=== PATIENT | male | born 1975 | race Caucasian/White ===

== ENCOUNTER 2020-10-17 07:42 | Inpatient (IN) | payer MEDICAID, OTHER, SELFPAY ==
[~2020-10-17] VITALS: Ht 175.3 cm; Wt 47.6 kg
[2020-10-17] MEDS ORDERED: SODIUM CHLORIDE 0.9% 1,000 ML IV ONE ×3 (09:30→11:15)
[2020-10-17 10:21] LABS: MEAN CORPUSCULAR HEMOGLOBIN 21.9 pg (28.0-32.0); MEAN CORPUSCULAR VOLUME 72.9 fL (80.0-94.0); MEAN PLATELET VOLUME 7.7 fl (7.4-10.4); PLATELET 157 x1000/uL (130-400); RED BLOOD CELL COUNT 1.49 mill/uL (4.7-6.1); RED CELL DISTRIBUTION WIDTH 17.9 % (11.6-14.6)
[2020-10-17 10:25] LABS: CHLORIDE 93 mEq/L (98-107)
[2020-10-17 10:29] LABS: ETHANOL BLOOD < 10 mg/dL
[2020-10-17 10:32] LABS: HEMATOCRIT. 10.9 % (42.0-52.0); HEMOGLOBIN. 3.3 g/dL (14.0-18.0)
[2020-10-17 10:51] LABS: NUCLEATED RED BLOOD CELLS 1 /100 WBC; PLATELET ESTIMATE NORMAL
[2020-10-17 12:07] LABS: CLARITY URINE CLOUDY (CLEAR); COLOR URINE YELLOW (YELLOW); KETONES URINE 2+ (NEGATIVE); LEUKOCYTE ESTERASE URINE NEGATIVE (NEGATIVE); NITRITE URINE NEGATIVE (NEGATIVE); OCCULT BLOOD URINE TRACE (NEGATIVE); PROTEIN URINE TRACE (NEGATIVE); SPECIFIC GRAVITY URINE 1.023 (1.005-1.030); UROBILINOGEN URINE 0.2 E.U./dL (0.2-1.0)
[2020-10-17 12:08] LABS: PARTIAL THROMBOPLASTIN TIME 69.3 sec (23.4-31.0); PROTHROMBIN TIME 20.3 sec (9.6-11.0)
[2020-10-17] MEDS ORDERED: MIDAZOLAM HCL 2 MG/2 ML VIAL IV ONE (12:15)
[2020-10-17] MEDS ORDERED: MIDAZOLAM HCL 100 MG in DEXT 5% WATER 80 ML IV ONE (12:15)
[2020-10-17 12:39] LABS: *AMPHETAMINES SCREEN URINE NEGATIVE (NEGATIVE); *BARBITURATES SCREEN URINE NEGATIVE (NEGATIVE); *BENZODIAZEPINES SCREEN URINE NEGATIVE (NEGATIVE); *COCAINE SCREEN URINE NEGATIVE (NEGATIVE); CANNABINOID URINE SCREEN NEGATIVE (NEGATIVE); PHENCYCLIDINE URINE SCREEN NEGATIVE (NEGATIVE)
[2020-10-17 12:41] LABS: METHADONE URINE SCREEN NEGATIVE (NEGATIVE)
[2020-10-17 12:42] LABS: OPIATES URINE SCREEN NEGATIVE (NEGATIVE)
[2020-10-17] MEDS ORDERED: MIDAZOLAM HCL 100 MG in DEXT 5% WATER 80 ML IV NR (12:45)
[2020-10-17] MEDS ORDERED: NOREPINEPHRINE 8MG/250ML PMX 250 ML IV ONE (14:30)
[2020-10-17] MEDS ORDERED: NOREPINEPHRINE 8 MG in DEXTROSE 5% WATER 250 ML IV ONE (14:30)
[2020-10-17] MEDS ORDERED: ONDANSETRON HCL 4MG/2ML INJ IV PRN (15:00)
[2020-10-17] MEDS ORDERED: SUCCINYLCHOLINE CHLORIDE 200MG/10ML IV ONE (15:00)
[2020-10-17] MEDS ORDERED: ATROPINE SULFATE 1MG/10ML SYR ONE (15:00)
[2020-10-17] MEDS ORDERED: SODIUM BICARBONATE 8.4% 1 MEQ/ML 50ML SYR IV SCH (15:00)
[2020-10-17] MEDS ORDERED: VECURONIUM BROMIDE 10 MG/VIAL IV ONE (15:00)
[2020-10-17] MEDS ORDERED: EPINEPHRINE 0.1MG/ML (1:10,000) 10ML SYR ONE (15:00)
[2020-10-17] MEDS: PANTOPRAZOLE SODIUM 40 MG/VIAL IV SCH (15:08)
[2020-10-17] MEDS ORDERED: POTASSIUM CHLORIDE INJ 40 MEQ in DEXT 5% WATER 250 ML IV SCH (16:00)
[2020-10-17] MEDS: CEFEPIME 1,000 MG in DEXTROSE 5% WATER 50 ML IV SCH (16:10)
[2020-10-17 16:34] LABS: PHOSPHORUS 4.6 mg/dL (2.5-4.9)
[2020-10-17] MEDS: SODIUM BICARBONATE 150 MEQ in SODIUM CHLORIDE 0.45% 1,000 ML IV SCH (16:34)
[2020-10-17] MEDS: VANCOMYCIN 1 G PREMIX 200 ML IV SCH (16:49)
[2020-10-17 16:55] LABS: HEPATITIS B SURFACE ANTIGEN NEGATIVE
[2020-10-17 17:25] LABS: HEPATITIS A AB IGM NEGATIVE (NEGATIVE)
[2020-10-17 19:48] LABS: HEMATOCRIT. 26.3 % (42.0-52.0); HEMOGLOBIN. 8.7 g/dL (14.0-18.0); MEAN CORPUSCULAR HEMOGLOBIN 24.3 pg (28.0-32.0); MEAN CORPUSCULAR VOLUME 73.9 fL (80.0-94.0); MEAN PLATELET VOLUME 7.4 fl (7.4-10.4); PLATELET 218 x1000/uL (130-400); RED BLOOD CELL COUNT 3.57 mill/uL (4.7-6.1); RED CELL DISTRIBUTION WIDTH 21.5 % (11.6-14.6)
[2020-10-17 19:59] LABS: INR 1.6; PROTHROMBIN TIME 16.7 sec (9.6-11.0)
[2020-10-17 20:10] LABS: PARTIAL THROMBOPLASTIN TIME 40.7 sec (23.4-31.0)
[2020-10-17 21:32] LABS: PLATELET ESTIMATE NORMAL
[2020-10-17] MEDS ORDERED: NOREPINEPHRINE 8 MG in DEXTROSE 5% WATER 250 ML IV PRN (23:15)
[2020-10-18] VITALS (64 sets, daily range): BP systolic 80–118; BP diastolic 42–74
[2020-10-18] MEDS: VANCOMYCIN 1 G PREMIX 200 ML IV SCH ×3 (01:20→21:38)
[2020-10-18 05:05] LABS: HEMATOCRIT. 31.3 % (42.0-52.0); HEMOGLOBIN. 10.2 g/dL (14.0-18.0); MEAN CORPUSCULAR VOLUME 73.9 fL (80.0-94.0); MEAN PLATELET VOLUME 7.6 fl (7.4-10.4); PLATELET 214 x1000/uL (130-400); RED BLOOD CELL COUNT 4.24 mill/uL (4.7-6.1)
[2020-10-18 05:14] LABS: CHLORIDE 97 mEq/L (98-107)
[2020-10-18 06:21] LABS: PLATELET ESTIMATE NORMAL
[2020-10-18] MEDS: SODIUM BICARBONATE 150 MEQ in SODIUM CHLORIDE 0.45% 1,000 ML IV SCH ×2 (06:30→09:48)
[2020-10-18] MEDS: CEFEPIME 1,000 MG in DEXTROSE 5% WATER 50 ML IV SCH ×2 (06:30→19:44)
[2020-10-18] MEDS ORDERED: NOREPINEPHRINE 32 MG in DEXT 5% WATER 218 ML IV PRN (08:15)
[2020-10-18] MEDS ORDERED: POTASSIUM CHLORIDE 20MEQ TABLET SR PO NR (09:42)
[2020-10-18] MEDS: PANTOPRAZOLE SODIUM 40 MG/VIAL IV SCH ×2 (09:54→17:21)
[2020-10-18] MEDS ORDERED: POTASSIUM CHLORIDE 20MEQ/PACKET PO NR (10:00)
[2020-10-18] MEDS: NOREPINEPHRINE 32 MG in DEXT 5% WATER 218 ML IV PRN ×2 (10:58→23:34)
[2020-10-18] MEDS: SODIUM CHLORIDE 0.9% 1,000 ML IV SCH (12:24)
[2020-10-18 13:21] LABS: BG BASE EXCESS -1.5 mmol/L (-2.0-2.0); BG CARBOXYHEMOGLOBIN 0.3 % (0.5-1.5); BG DEOXYHEMOGLOBIN 9.2 % (0.0-5.0); BG HCO3 ACT 20.7 mmol/L (22.0-26.0); BG METHEMOGLOBIN 0.3 % (0.0-1.5); BG OXYGEN SATURATION 90.7 % (92.0-98.5); BG OXYHEMOGLOBIN 90.2 % (94.0-97.0); BG PCO2 26.8 mmHg (35.0-45.0); BG PH 7.506 (7.350-7.450); BG PO2 56.5 mmHg (75.0-100.0); BG SAMPLE SITE RIGHT RADIAL; BG TOTAL HEMOGLOBIN 10.3 g/dL (12.0-18.0); BG VENT MODE VENT - AC
[2020-10-18] MEDS: MIDAZOLAM HCL 100 MG in DEXT 5% WATER 80 ML IV PRN (14:14)
[2020-10-18 16:55] LABS: CHLORIDE 98 mEq/L (98-107)
[2020-10-19] VITALS (93 sets, daily range): BP systolic 77–149; BP diastolic 46–98
[2020-10-19] MEDS: SODIUM CHLORIDE 0.9% 1,000 ML IV SCH (00:57)
[2020-10-19] MEDS: CEFEPIME 1,000 MG in DEXTROSE 5% WATER 50 ML IV SCH ×2 (05:05→22:18)
[2020-10-19 06:01] LABS: HEMOGLOBIN. 9.9 g/dL (14.0-18.0); MEAN CORPUSCULAR HEMOGLOBIN 24.1 pg (28.0-32.0); PLATELET 142 x1000/uL (130-400); RED CELL DISTRIBUTION WIDTH 21.9 % (11.6-14.6)
[2020-10-19 06:04] LABS: CHLORIDE 98 mEq/L (98-107)
[2020-10-19 06:07] LABS: INR 1.6; PROTHROMBIN TIME 16.6 sec (9.6-11.0)
[2020-10-19] MEDS: VANCOMYCIN 1 G PREMIX 200 ML IV SCH (06:08)
[2020-10-19 06:12] LABS: TOTAL IRON BINDING CAPACITY 275 ug/dL (250-450)
[2020-10-19 06:25] LABS: FOLIC ACID (FOLATE) SERUM 6.4 ng/mL (>5.38)
[2020-10-19 09:09] LABS: BG CARBOXYHEMOGLOBIN 0.3 % (0.5-1.5); BG DEOXYHEMOGLOBIN 0.5 % (0.0-5.0); BG HCO3 ACT 20.9 mmol/L (22.0-26.0); BG METHEMOGLOBIN 0.3 % (0.0-1.5); BG OXYGEN SATURATION 99.5 % (92.0-98.5); BG OXYHEMOGLOBIN 98.9 % (94.0-97.0); BG PCO2 29.3 mmHg (35.0-45.0); BG PH 7.471 (7.350-7.450); BG PO2 367.9 mmHg (75.0-100.0); BG SAMPLE SITE RIGHT RADIAL; BG TOTAL HEMOGLOBIN 10.3 g/dL (12.0-18.0); BG VENT MODE VENT - AC
[2020-10-19] MEDS ORDERED: DEXTROSE 50% WATER 50ML SYRINGE IV PRN (09:15)
[2020-10-19] MEDS ORDERED: DEXTROSE 5% WATER 1,000 ML IV SCH (09:30)
[2020-10-19] MEDS: MIDAZOLAM HCL 100 MG in DEXT 5% WATER 80 ML IV PRN (09:30)
[2020-10-19] MEDS: PANTOPRAZOLE SODIUM 40 MG/VIAL IV SCH ×2 (09:30→16:49)
[2020-10-19 10:54] LABS: PLATELET ESTIMATE NORMAL
[2020-10-19] MEDS ORDERED: PIPERONYL/PYRETHRINS (RID)120 ML SHAMPOO TOP SCH (13:00)
[2020-10-19] MEDS: LACTULOSE 20G/30ML UDC PO SCH ×2 (13:34→22:19)
[2020-10-19] MEDS: IRON SUCROSE COMPLEX 100 MG/5 ML ML IV SCH (13:35)
[2020-10-19] MEDS: MIDODRINE HCL 5MG TABLET PO SCH ×2 (13:36→17:00)
[2020-10-19] MEDS: DEXT 5%/0.9% NACL 1,000 ML IV SCH ×2 (13:38→19:45)
[2020-10-19] MEDS: NOREPINEPHRINE 32 MG in DEXT 5% WATER 218 ML IV PRN (18:01)
[2020-10-20] VITALS (97 sets, daily range): BP systolic 82–143; BP diastolic 51–86
[2020-10-20] MEDS: MIDAZOLAM HCL 100 MG in DEXT 5% WATER 80 ML IV PRN ×2 (03:51→23:11)
[2020-10-20 05:40] LABS: HEMATOCRIT. 30.8 % (42.0-52.0); HEMOGLOBIN. 9.8 g/dL (14.0-18.0); MEAN CORPUSCULAR HEMOGLOBIN 23.9 pg (28.0-32.0); MEAN CORPUSCULAR VOLUME 74.9 fL (80.0-94.0); MEAN PLATELET VOLUME 8.9 fl (7.4-10.4); PLATELET 79 x1000/uL (130-400); RED BLOOD CELL COUNT 4.11 mill/uL (4.7-6.1); RED CELL DISTRIBUTION WIDTH 21.9 % (11.6-14.6)
[2020-10-20 05:59] LABS: CHLORIDE 102 mEq/L (98-107)
[2020-10-20] MEDS: LACTULOSE 20G/30ML UDC PO SCH ×3 (06:55→22:20)
[2020-10-20] MEDS: MIDODRINE HCL 5MG TABLET PO SCH ×3 (08:15→17:00)
[2020-10-20] MEDS: IRON SUCROSE COMPLEX 100 MG/5 ML ML IV SCH (08:15)
[2020-10-20] MEDS: PANTOPRAZOLE SODIUM 40 MG/VIAL IV SCH ×2 (08:15→17:00)
[2020-10-20] MEDS: CEFEPIME 1,000 MG in DEXTROSE 5% WATER 50 ML IV SCH ×2 (08:16→20:00)
[2020-10-20] MEDS: NOREPINEPHRINE 32 MG in DEXT 5% WATER 218 ML IV PRN ×2 (08:17→22:21)
[2020-10-20 08:40] LABS: PLATELET ESTIMATE DECREASED
[2020-10-20 09:47] LABS: BG BASE EXCESS -3.4 mmol/L (-2.0-2.0); BG CARBOXYHEMOGLOBIN 0.3 % (0.5-1.5); BG DEOXYHEMOGLOBIN 0.8 % (0.0-5.0); BG FRACTION INSPIRED OXYGEN 70; BG HCO3 ACT 21.5 mmol/L (22.0-26.0); BG METHEMOGLOBIN 0.2 % (0.0-1.5); BG OXYGEN SATURATION 99.2 % (92.0-98.5); BG OXYHEMOGLOBIN 98.7 % (94.0-97.0); BG PCO2 37.7 mmHg (35.0-45.0); BG PH 7.373 (7.350-7.450); BG PO2 207.7 mmHg (75.0-100.0); BG SAMPLE SITE RIGHT RADIAL; BG TOTAL HEMOGLOBIN 10.1 g/dL (12.0-18.0); BG VENT MODE VENT - AC
[2020-10-20] MEDS ORDERED: POTASSIUM CHLORIDE 20MEQ TABLET SR PO NR (11:00)
[2020-10-20] MEDS: SODIUM CHLORIDE 0.9% 1,000 ML IV SCH ×2 (12:04→21:30)
[2020-10-20] MEDS: VANCOMYCIN 1 G PREMIX 200 ML IV SCH (12:04)
[2020-10-20] MEDS ORDERED: POTASSIUM CHLORIDE INJ 40 MEQ in DEXT 5% WATER 250 ML IV NR (13:00)
[2020-10-20] MEDS: IPRATROPIUM/ALBUTEROL 0.5-3(2.5)MG/3ML NEB HHN SCH (20:50)
[2020-10-21] VITALS (95 sets, daily range): BP systolic 69–170; BP diastolic 34–95
[2020-10-21] MEDS: IPRATROPIUM/ALBUTEROL 0.5-3(2.5)MG/3ML NEB HHN SCH ×4 (01:38→20:44)
[2020-10-21] MEDS: SODIUM CHLORIDE 0.9% 1,000 ML IV SCH ×2 (03:40→17:27)
[2020-10-21 05:56] LABS: HEMATOCRIT. 30.4 % (42.0-52.0); HEMOGLOBIN. 9.7 g/dL (14.0-18.0); MEAN CORPUSCULAR HEMOGLOBIN 23.8 pg (28.0-32.0); MEAN CORPUSCULAR VOLUME 74.9 fL (80.0-94.0); MEAN PLATELET VOLUME 9.2 fl (7.4-10.4); PLATELET 54 x1000/uL (130-400); RED BLOOD CELL COUNT 4.07 mill/uL (4.7-6.1); RED CELL DISTRIBUTION WIDTH 21.5 % (11.6-14.6)
[2020-10-21 06:11] LABS: CHLORIDE 107 mEq/L (98-107)
[2020-10-21] MEDS: VANCOMYCIN 1 G PREMIX 200 ML IV SCH (06:18)
[2020-10-21] MEDS: LACTULOSE 20G/30ML UDC PO SCH ×2 (06:18→14:36)
[2020-10-21 07:57] LABS: PLATELET ESTIMATE DECREASED
[2020-10-21] MEDS ORDERED: POTASSIUM CHLORIDE INJ 40 MEQ in DEXT 5% WATER 250 ML IV NR (08:30)
[2020-10-21] MEDS: IRON SUCROSE COMPLEX 100 MG/5 ML ML IV SCH (08:34)
[2020-10-21] MEDS: PANTOPRAZOLE SODIUM 40 MG/VIAL IV SCH ×2 (08:34→17:26)
[2020-10-21 08:35] LABS: BG CARBOXYHEMOGLOBIN 0.4 % (0.5-1.5); BG DEOXYHEMOGLOBIN 1.9 % (0.0-5.0); BG FRACTION INSPIRED OXYGEN 50; BG HCO3 ACT 22.8 mmol/L (22.0-26.0); BG METHEMOGLOBIN 0.2 % (0.0-1.5); BG OXYGEN SATURATION 98.1 % (92.0-98.5); BG OXYHEMOGLOBIN 97.5 % (94.0-97.0); BG PCO2 39.3 mmHg (35.0-45.0); BG PH 7.382 (7.350-7.450); BG PO2 111.4 mmHg (75.0-100.0); BG SAMPLE SITE RIGHT RADIAL; BG VENT MODE VENT - AC
[2020-10-21] MEDS: MIDODRINE HCL 5MG TABLET PO SCH ×3 (08:35→17:26)
[2020-10-21] MEDS: CEFEPIME 1,000 MG in DEXTROSE 5% WATER 50 ML IV SCH ×2 (10:44→20:04)
[2020-10-21] MEDS ORDERED: VECURONIUM BROMIDE 10 MG/VIAL IV ONE (15:00)
[2020-10-21] MEDS ORDERED: ETOMIDATE 2MG/ML 10ML VIAL IV ONE (15:00)
[2020-10-21] MEDS ORDERED: SODIUM CHLORIDE 0.9% 10ML VIAL ONE (15:00)
[2020-10-21] MEDS: FENTANYL CITRATE/PF 1,000 MCG in SODIUM CHLORIDE 0.9% 80 ML IV PRN ×2 (15:28→18:40)
[2020-10-21] MEDS: NOREPINEPHRINE 32 MG in DEXT 5% WATER 218 ML IV PRN (20:39)
[2020-10-22] VITALS (92 sets, daily range): BP systolic 73–145; BP diastolic 46–90
[2020-10-22] MEDS: IPRATROPIUM/ALBUTEROL 0.5-3(2.5)MG/3ML NEB HHN SCH ×4 (01:18→19:53)
[2020-10-22] MEDS: SODIUM CHLORIDE 0.9% 1,000 ML IV SCH ×2 (05:01→12:30)
[2020-10-22] MEDS ORDERED: NOREPINEPHRINE 32 MG in DEXTROSE 5% WATER 250 ML IV PRN (05:15)
[2020-10-22 06:22] LABS: CHLORIDE 110 mEq/L (98-107)
[2020-10-22 06:31] LABS: CREATINE KINASE 362 IU/L (39-308)
[2020-10-22] MEDS: PANTOPRAZOLE SODIUM 40 MG/VIAL IV SCH (09:27)
[2020-10-22] MEDS: LACTULOSE 20G/30ML UDC PO SCH (09:27)
[2020-10-22] MEDS: IRON SUCROSE COMPLEX 100 MG/5 ML ML IV SCH (09:28)
[2020-10-22] MEDS: MIDODRINE HCL 5MG TABLET PO SCH ×2 (09:28→12:30)
[2020-10-22] MEDS: FENTANYL CITRATE/PF 1,000 MCG in SODIUM CHLORIDE 0.9% 80 ML IV PRN (09:41)
[2020-10-22 09:51] LABS: HEMATOCRIT. 32.8 % (42.0-52.0); MEAN CORPUSCULAR HEMOGLOBIN 23.2 pg (28.0-32.0); MEAN CORPUSCULAR VOLUME 75.7 fL (80.0-94.0); RED BLOOD CELL COUNT 4.33 mill/uL (4.7-6.1)
[2020-10-22 10:07] LABS: PLATELET 36 x1000/uL (130-400)
[2020-10-22 10:48] LABS: NUCLEATED RED BLOOD CELLS 1 /100 WBC
[2020-10-22 10:49] LABS: PLATELET ESTIMATE MARKEDLY DECREASED
[2020-10-22] MEDS ORDERED: POTASSIUM CHLORIDE 20MEQ TABLET SR PO NR (11:00)
[2020-10-22] MEDS: CEFEPIME 1,000 MG in DEXTROSE 5% WATER 50 ML IV SCH (11:04)
[2020-10-22 11:17] LABS: BG BASE EXCESS 0.1 mmol/L (-2.0-2.0); BG CARBOXYHEMOGLOBIN 0.9 % (0.5-1.5); BG DEOXYHEMOGLOBIN 2.5 % (0.0-5.0); BG FRACTION INSPIRED OXYGEN 40; BG HCO3 ACT 25.2 mmol/L (22.0-26.0); BG METHEMOGLOBIN 0.2 % (0.0-1.5); BG OXYGEN SATURATION 97.5 % (92.0-98.5); BG OXYHEMOGLOBIN 96.4 % (94.0-97.0); BG PH 7.386 (7.350-7.450); BG PO2 93.8 mmHg (75.0-100.0); BG SAMPLE SITE RIGHT RADIAL; BG TOTAL HEMOGLOBIN 10.9 g/dL (12.0-18.0); BG TOTAL RESPIRATORY RATE 19 b/min; BG VENT MODE VENT - AC
[2020-10-22] MEDS ORDERED: POTASSIUM CHLORIDE INJ 40 MEQ in DEXT 5% WATER 250 ML IV NR (12:00)
[2020-10-22] MEDS: CEFTRIAXONE 1,000 MG in DEXTROSE 5% WATER 50 ML IV SCH (20:49)
[2020-10-23] VITALS (102 sets, daily range): BP systolic 85–136; BP diastolic 38–76
[2020-10-23] MEDS: IPRATROPIUM/ALBUTEROL 0.5-3(2.5)MG/3ML NEB HHN SCH ×5 (01:55→20:20)
[2020-10-23 05:42] LABS: HEMOGLOBIN. 9.2 g/dL (14.0-18.0); MEAN CORPUSCULAR HEMOGLOBIN 23.6 pg (28.0-32.0); MEAN CORPUSCULAR VOLUME 74.5 fL (80.0-94.0); MEAN PLATELET VOLUME 8.6 fl (7.4-10.4); RED BLOOD CELL COUNT 3.89 mill/uL (4.7-6.1)
[2020-10-23 05:50] LABS: PLATELET 36 x1000/uL (130-400)
[2020-10-23 05:56] LABS: CHLORIDE 106 mEq/L (98-107)
[2020-10-23] MEDS ORDERED: POTASSIUM CHLORIDE INJ 40 MEQ in DEXT 5% WATER 250 ML IV SCH (07:00)
[2020-10-23] MEDS: FENTANYL CITRATE/PF 1,000 MCG in SODIUM CHLORIDE 0.9% 80 ML IV PRN ×2 (07:25→18:41)
[2020-10-23 07:32] LABS: BG BASE EXCESS 5.5 mmol/L (-2.0-2.0); BG CARBOXYHEMOGLOBIN 0.4 % (0.5-1.5); BG DEOXYHEMOGLOBIN 1.9 % (0.0-5.0); BG FRACTION INSPIRED OXYGEN 40; BG METHEMOGLOBIN 0.2 % (0.0-1.5); BG OXYGEN SATURATION 98.1 % (92.0-98.5); BG OXYHEMOGLOBIN 97.5 % (94.0-97.0); BG PCO2 37.9 mmHg (35.0-45.0); BG PH 7.501 (7.350-7.450); BG PO2 103.8 mmHg (75.0-100.0); BG SAMPLE SITE RIGHT RADIAL; BG TOTAL HEMOGLOBIN 9.7 g/dL (12.0-18.0)
[2020-10-23] MEDS: MIDAZOLAM HCL 100 MG in DEXT 5% WATER 80 ML IV PRN (08:31)
[2020-10-23] MEDS: PANTOPRAZOLE SODIUM 40 MG/VIAL IV SCH ×2 (08:49→17:24)
[2020-10-23] MEDS: LACTULOSE 20G/30ML UDC PO SCH (08:49)
[2020-10-23] MEDS: MIDODRINE HCL 5MG TABLET PO SCH ×3 (08:50→17:24)
[2020-10-23] MEDS ORDERED: MAGNESIUM 4 G PREMIX 100 ML IV NR (09:00)
[2020-10-23] MEDS ORDERED: CEFTRIAXONE 1 G PREMIX 50 ML IV SCH (09:00)
[2020-10-23] MEDS: IRON SUCROSE COMPLEX 100 MG/5 ML ML IV SCH (09:25)
[2020-10-23 09:45] LABS: PLATELET ESTIMATE MARKEDLY DECREASED
[2020-10-23] MEDS ORDERED: PERMETHRIN 5% CREAM 60GM TOP ONE (12:00)
[2020-10-23 12:56] LABS: BG BASE EXCESS 3.3 mmol/L (-2.0-2.0); BG CARBOXYHEMOGLOBIN 0.3 % (0.5-1.5); BG DEOXYHEMOGLOBIN 7.9 % (0.0-5.0); BG FRACTION INSPIRED OXYGEN 40; BG HCO3 ACT 28.5 mmol/L (22.0-26.0); BG METHEMOGLOBIN 0.2 % (0.0-1.5); BG OXYGEN SATURATION 92.1 % (92.0-98.5); BG OXYHEMOGLOBIN 91.6 % (94.0-97.0); BG PCO2 46.9 mmHg (35.0-45.0); BG PH 7.402 (7.350-7.450); BG SAMPLE SITE RIGHT RADIAL; BG TOTAL RESPIRATORY RATE 23 b/min; BG VENT MODE VENT - AC
[2020-10-23] MEDS: PHENYLEPHRINE 100 MG in DEXT 5% WATER 240 ML IV PRN (13:02)
[2020-10-23 19:25] LABS: CLARITY URINE TURBID (CLEAR); COLOR URINE ORANGE (YELLOW); KETONES URINE NEGATIVE (NEGATIVE); LEUKOCYTE ESTERASE URINE 1+ (NEGATIVE); NITRITE URINE POSITIVE (NEGATIVE); OCCULT BLOOD URINE 3+ (NEGATIVE); PROTEIN URINE 1+ (NEGATIVE); SPECIFIC GRAVITY URINE 1.026 (1.005-1.030); UROBILINOGEN URINE 0.2 E.U./dL (0.2-1.0)
[2020-10-23] MEDS: CEFTRIAXONE 1,000 MG in DEXTROSE 5% WATER 50 ML IV SCH (20:44)
[2020-10-24] VITALS (100 sets, daily range): BP systolic 88–137; BP diastolic 39–74
[2020-10-24] MEDS: IPRATROPIUM/ALBUTEROL 0.5-3(2.5)MG/3ML NEB HHN SCH ×4 (02:34→20:36)
[2020-10-24 05:35] LABS: BASOPHILS % 0.1 % (0.0-2.0); EOSINOPHILS % 7.1 % (0.0-5.0); HEMATOCRIT. 26.8 % (42.0-52.0); HEMOGLOBIN. 8.5 g/dL (14.0-18.0); LYMPHOCYTES % 7.6 % (20.0-50.0); MEAN CORPUSCULAR HEMOGLOBIN 23.7 pg (28.0-32.0); MEAN CORPUSCULAR VOLUME 74.9 fL (80.0-94.0); MEAN PLATELET VOLUME 9.5 fl (7.4-10.4); NEUTROPHILS % 78.2 % (40.0-76.0); RED BLOOD CELL COUNT 3.57 mill/uL (4.7-6.1); RED CELL DISTRIBUTION WIDTH 22.8 % (11.6-14.6)
[2020-10-24 05:41] LABS: CHLORIDE 107 mEq/L (98-107)
[2020-10-24] MEDS: FENTANYL CITRATE/PF 1,000 MCG in SODIUM CHLORIDE 0.9% 80 ML IV PRN ×2 (06:07→18:47)
[2020-10-24 07:13] LABS: PLATELET 34 x1000/uL (130-400)
[2020-10-24] MEDS: MIDAZOLAM HCL 100 MG in DEXT 5% WATER 80 ML IV PRN (08:21)
[2020-10-24] MEDS: PANTOPRAZOLE SODIUM 40 MG/VIAL IV SCH ×2 (08:34→17:33)
[2020-10-24] MEDS: LACTULOSE 20G/30ML UDC PO SCH (08:34)
[2020-10-24] MEDS: MIDODRINE HCL 5MG TABLET PO SCH ×3 (08:35→17:33)
[2020-10-24] MEDS: PHENYLEPHRINE 100 MG in DEXT 5% WATER 240 ML IV PRN (15:49)
[2020-10-24] MEDS: CEFTRIAXONE 1,000 MG in DEXTROSE 5% WATER 50 ML IV SCH (20:30)
[2020-10-25] VITALS (93 sets, daily range): BP systolic 59–142; BP diastolic 22–75
[2020-10-25] MEDS: ACETAMINOPHEN 325MG TABLET PO PRN (01:09)
[2020-10-25] MEDS: IPRATROPIUM/ALBUTEROL 0.5-3(2.5)MG/3ML NEB HHN SCH ×3 (01:45→20:44)
[2020-10-25] MEDS: FENTANYL CITRATE/PF 1,000 MCG in SODIUM CHLORIDE 0.9% 80 ML IV PRN ×2 (04:16→17:14)
[2020-10-25] MEDS: MIDAZOLAM HCL 100 MG in DEXT 5% WATER 80 ML IV PRN (04:18)
[2020-10-25 07:03] LABS: INR 1.2; PROTHROMBIN TIME 12.4 sec (9.6-11.0)
[2020-10-25 07:06] LABS: CHLORIDE 105 mEq/L (98-107)
[2020-10-25 08:41] LABS: BASOPHILS % 0.2 % (0.0-2.0); EOSINOPHILS % 5.5 % (0.0-5.0); HEMATOCRIT. 27.4 % (42.0-52.0); HEMOGLOBIN. 8.8 g/dL (14.0-18.0); MEAN CORPUSCULAR HEMOGLOBIN 24.1 pg (28.0-32.0); MEAN CORPUSCULAR VOLUME 75.3 fL (80.0-94.0); MEAN PLATELET VOLUME 9.3 fl (7.4-10.4); MONOCYTES % 9.4 % (2.0-8.0); NEUTROPHILS % 72.9 % (40.0-76.0); PLATELET 55 x1000/uL (130-400); RED BLOOD CELL COUNT 3.64 mill/uL (4.7-6.1); RED CELL DISTRIBUTION WIDTH 23.1 % (11.6-14.6)
[2020-10-25] MEDS: MIDODRINE HCL 5MG TABLET PO SCH ×3 (09:57→17:13)
[2020-10-25] MEDS: PANTOPRAZOLE SODIUM 40 MG/VIAL IV SCH ×2 (09:57→17:12)
[2020-10-25] MEDS ORDERED: MAGNESIUM 4 G PREMIX 100 ML IV NR (12:30)
[2020-10-25] MEDS: CEFTRIAXONE 1,000 MG in DEXTROSE 5% WATER 50 ML IV SCH (21:26)
[2020-10-25] MEDS: PHENYLEPHRINE 100 MG in DEXT 5% WATER 240 ML IV PRN (23:07)
[2020-10-26] VITALS (96 sets, daily range): BP systolic 84–151; BP diastolic 32–83
[2020-10-26] MEDS: MIDAZOLAM HCL 100 MG in DEXT 5% WATER 80 ML IV PRN (02:08)
[2020-10-26] MEDS: IPRATROPIUM/ALBUTEROL 0.5-3(2.5)MG/3ML NEB HHN SCH ×4 (02:24→20:23)
[2020-10-26] MEDS: FENTANYL CITRATE/PF 1,000 MCG in SODIUM CHLORIDE 0.9% 80 ML IV PRN ×2 (03:41→14:55)
[2020-10-26 05:42] LABS: BASOPHILS % 0.2 % (0.0-2.0); EOSINOPHILS % 2.3 % (0.0-5.0); HEMATOCRIT. 27.3 % (42.0-52.0); HEMOGLOBIN. 8.9 g/dL (14.0-18.0); LYMPHOCYTES % 13.1 % (20.0-50.0); MEAN CORPUSCULAR HEMOGLOBIN 24.4 pg (28.0-32.0); MEAN CORPUSCULAR VOLUME 75.1 fL (80.0-94.0); MONOCYTES % 11.5 % (2.0-8.0); NEUTROPHILS % 72.9 % (40.0-76.0); RED BLOOD CELL COUNT 3.63 mill/uL (4.7-6.1); RED CELL DISTRIBUTION WIDTH 24.4 % (11.6-14.6)
[2020-10-26 05:46] LABS: CHLORIDE 102 mEq/L (98-107)
[2020-10-26 06:01] LABS: INR 1.1; PROTHROMBIN TIME 11.8 sec (9.6-11.0)
[2020-10-26 09:13] LABS: PLATELET 69 x1000/uL (130-400)
[2020-10-26] MEDS: MIDODRINE HCL 5MG TABLET PO SCH ×3 (09:13→17:08)
[2020-10-26] MEDS: PANTOPRAZOLE SODIUM 40 MG/VIAL IV SCH ×2 (09:13→17:07)
[2020-10-26] MEDS: ACETAMINOPHEN 325MG TABLET PO PRN (09:16)
[2020-10-26] MEDS: METOCLOPRAMIDE HCL 10MG/2ML VIAL IV SCH ×3 (12:49→23:22)
[2020-10-26] MEDS ORDERED: MAGNESIUM 2 G PREMIX 50 ML IV NR (13:00)
[2020-10-26] MEDS: LACTULOSE 20G/30ML UDC PO PRN (17:07)
[2020-10-26] MEDS: CEFTRIAXONE 1,000 MG in DEXTROSE 5% WATER 50 ML IV SCH (20:56)
[2020-10-26] MEDS: PHENYLEPHRINE 100 MG in DEXT 5% WATER 240 ML IV PRN (21:02)
[2020-10-26] MEDS ORDERED: MAGNESIUM 2 G PREMIX 50 ML IV SCH (22:30)
[2020-10-26] MEDS: FENTANYL CITRATE/PF 2,500 MCG in SODIUM CHLORIDE 0.9% 200 ML IV PRN (23:20)
[2020-10-27] VITALS (79 sets, daily range): BP systolic 88–140; BP diastolic 47–88
[2020-10-27] MEDS: IPRATROPIUM/ALBUTEROL 0.5-3(2.5)MG/3ML NEB HHN SCH ×4 (00:06→20:57)
[2020-10-27] MEDS: METOCLOPRAMIDE HCL 10MG/2ML VIAL IV SCH ×4 (06:10→23:55)
[2020-10-27] MEDS: ACETAMINOPHEN 325MG TABLET PO PRN (06:18)
[2020-10-27 06:34] LABS: BASOPHILS % 0.4 % (0.0-2.0); EOSINOPHILS % 4.3 % (0.0-5.0); HEMATOCRIT. 31.1 % (42.0-52.0); HEMOGLOBIN. 9.8 g/dL (14.0-18.0); LYMPHOCYTES % 16.9 % (20.0-50.0); MEAN CORPUSCULAR HEMOGLOBIN 23.9 pg (28.0-32.0); MEAN CORPUSCULAR VOLUME 75.7 fL (80.0-94.0); MEAN PLATELET VOLUME 9.4 fl (7.4-10.4); MONOCYTES % 8.7 % (2.0-8.0); NEUTROPHILS % 69.7 % (40.0-76.0); PLATELET 112 x1000/uL (130-400); RED BLOOD CELL COUNT 4.11 mill/uL (4.7-6.1); RED CELL DISTRIBUTION WIDTH 24.7 % (11.6-14.6)
[2020-10-27 06:43] LABS: CHLORIDE 99 mEq/L (98-107); INR 1.1; PROTHROMBIN TIME 11.2 sec (9.6-11.0)
[2020-10-27] MEDS: MIDODRINE HCL 5MG TABLET PO SCH ×3 (08:55→17:33)
[2020-10-27] MEDS: PANTOPRAZOLE SODIUM 40 MG/VIAL IV SCH ×2 (08:55→17:34)
[2020-10-27] MEDS ORDERED: SODIUM POLYSTYRENE SULFONATE 15 G/60 ML BOT PO SCH (10:00)
[2020-10-27] MEDS: MIDAZOLAM HCL 100 MG in DEXT 5% WATER 80 ML IV PRN (18:03)
[2020-10-27] MEDS: FENTANYL CITRATE/PF 2,500 MCG in SODIUM CHLORIDE 0.9% 200 ML IV PRN (19:25)
[2020-10-27] MEDS: CEFTRIAXONE 1,000 MG in DEXTROSE 5% WATER 50 ML IV SCH (20:24)
[2020-10-28] VITALS (70 sets, daily range): BP systolic 87–140; BP diastolic 47–96
[2020-10-28] MEDS: IPRATROPIUM/ALBUTEROL 0.5-3(2.5)MG/3ML NEB HHN SCH ×4 (01:59→20:21)
[2020-10-28] MEDS: METOCLOPRAMIDE HCL 10MG/2ML VIAL IV SCH ×4 (05:38→23:48)
[2020-10-28 07:09] LABS: CHLORIDE 98 mEq/L (98-107)
[2020-10-28 07:20] LABS: INR 1.1; PROTHROMBIN TIME 11.4 sec (9.6-11.0)
[2020-10-28] MEDS: FENTANYL CITRATE/PF 2,500 MCG in SODIUM CHLORIDE 0.9% 200 ML IV PRN ×2 (07:54→22:35)
[2020-10-28 08:32] LABS: BASOPHILS % 0.3 % (0.0-2.0); EOSINOPHILS % 3.2 % (0.0-5.0); HEMOGLOBIN. 8.4 g/dL (14.0-18.0); LYMPHOCYTES % 11.8 % (20.0-50.0); MEAN CORPUSCULAR HEMOGLOBIN 24.5 pg (28.0-32.0); MEAN PLATELET VOLUME 9.7 fl (7.4-10.4); MONOCYTES % 11.2 % (2.0-8.0); NEUTROPHILS % 73.5 % (40.0-76.0); RED BLOOD CELL COUNT 3.42 mill/uL (4.7-6.1); RED CELL DISTRIBUTION WIDTH 24.8 % (11.6-14.6)
[2020-10-28 08:40] LABS: PLATELET 187 x1000/uL (130-400)
[2020-10-28] MEDS: PANTOPRAZOLE SODIUM 40 MG/VIAL IV SCH ×2 (09:09→16:34)
[2020-10-28] MEDS: MIDODRINE HCL 5MG TABLET PO SCH ×3 (09:09→16:34)
[2020-10-28 10:02] LABS: BG BASE EXCESS 4.2 mmol/L (-2.0-2.0); BG CARBOXYHEMOGLOBIN 1.2 % (0.5-1.5); BG HCO3 ACT 27.8 mmol/L (22.0-26.0); BG METHEMOGLOBIN 0.3 % (0.0-1.5); BG OXYGEN SATURATION 94.9 % (92.0-98.5); BG OXYHEMOGLOBIN 93.5 % (94.0-97.0); BG PCO2 37.6 mmHg (35.0-45.0); BG PH 7.487 (7.350-7.450); BG PO2 70.9 mmHg (75.0-100.0); BG SAMPLE SITE RIGHT RADIAL; BG TOTAL HEMOGLOBIN 8.4 g/dL (12.0-18.0); BG VENT MODE VENT - AC
[2020-10-28] MEDS: ACETAMINOPHEN 325MG TABLET PO PRN (16:34)
[2020-10-29] VITALS (74 sets, daily range): BP systolic 82–148; BP diastolic 43–81
[2020-10-29] MEDS: IPRATROPIUM/ALBUTEROL 0.5-3(2.5)MG/3ML NEB HHN SCH ×4 (01:59→20:39)
[2020-10-29] MEDS: METOCLOPRAMIDE HCL 10MG/2ML VIAL IV SCH ×4 (05:57→23:22)
[2020-10-29 06:01] LABS: INR 1.1
[2020-10-29 06:02] LABS: CHLORIDE 98 mEq/L (98-107)
[2020-10-29 06:08] LABS: BASOPHILS % 0.3 % (0.0-2.0); EOSINOPHILS % 3.3 % (0.0-5.0); LYMPHOCYTES % 13.3 % (20.0-50.0); MEAN CORPUSCULAR HEMOGLOBIN 24.1 pg (28.0-32.0); MEAN CORPUSCULAR VOLUME 75.3 fL (80.0-94.0); MEAN PLATELET VOLUME 9.1 fl (7.4-10.4); MONOCYTES % 12.6 % (2.0-8.0); NEUTROPHILS % 70.5 % (40.0-76.0); PLATELET 286 x1000/uL (130-400); RED BLOOD CELL COUNT 3.32 mill/uL (4.7-6.1); RED CELL DISTRIBUTION WIDTH 25.6 % (11.6-14.6)
[2020-10-29] MEDS: PANTOPRAZOLE SODIUM 40 MG/VIAL IV SCH ×2 (08:37→17:02)
[2020-10-29] MEDS: MIDODRINE HCL 5MG TABLET PO SCH ×3 (08:38→17:02)
[2020-10-29 10:12] LABS: BG CARBOXYHEMOGLOBIN 0.4 % (0.5-1.5); BG DEOXYHEMOGLOBIN 4.7 % (0.0-5.0); BG FRACTION INSPIRED OXYGEN 50; BG HCO3 ACT 25.6 mmol/L (22.0-26.0); BG METHEMOGLOBIN 0.2 % (0.0-1.5); BG OXYGEN SATURATION 95.3 % (92.0-98.5); BG OXYHEMOGLOBIN 94.7 % (94.0-97.0); BG PCO2 35.8 mmHg (35.0-45.0); BG PH 7.473 (7.350-7.450); BG SAMPLE SITE LEFT RADIAL; BG TOTAL RESPIRATORY RATE 27 b/min; BG VENT MODE VENT - AC
[2020-10-29] MEDS: FENTANYL CITRATE/PF 2,500 MCG in SODIUM CHLORIDE 0.9% 200 ML IV PRN ×2 (12:05→23:08)
[2020-10-29] MEDS: ACETAMINOPHEN 325MG TABLET PO PRN (15:33)
[2020-10-29] MEDS: ACETYLCYSTEINE 100MG/ML 10% VIAL 4ML INH SCH (20:39)
[2020-10-30] VITALS (56 sets, daily range): BP systolic 91–151; BP diastolic 44–81
[2020-10-30] MEDS: ACETYLCYSTEINE 100MG/ML 10% VIAL 4ML INH SCH ×4 (03:57→23:37)
[2020-10-30] MEDS: IPRATROPIUM/ALBUTEROL 0.5-3(2.5)MG/3ML NEB HHN SCH ×5 (03:57→23:37)
[2020-10-30] MEDS: METOCLOPRAMIDE HCL 10MG/2ML VIAL IV SCH ×4 (06:04→23:25)
[2020-10-30 06:16] LABS: CHLORIDE 98 mEq/L (98-107)
[2020-10-30] MEDS ORDERED: LIDOCAINE HCL 1% 20ML VIAL (Pyxis) INJ ONE (09:45)
[2020-10-30 10:08] LABS: BASOPHILS % 0.3 % (0.0-2.0); EOSINOPHILS % 1.9 % (0.0-5.0); HEMATOCRIT. 25.6 % (42.0-52.0); LYMPHOCYTES % 14.7 % (20.0-50.0); MEAN CORPUSCULAR HEMOGLOBIN 23.5 pg (28.0-32.0); MEAN CORPUSCULAR VOLUME 75.2 fL (80.0-94.0); MEAN PLATELET VOLUME 8.3 fl (7.4-10.4); MONOCYTES % 14.5 % (2.0-8.0); NEUTROPHILS % 68.6 % (40.0-76.0); PLATELET 499 x1000/uL (130-400); RED BLOOD CELL COUNT 3.41 mill/uL (4.7-6.1); RED CELL DISTRIBUTION WIDTH 26.1 % (11.6-14.6)
[2020-10-30] MEDS: MIDODRINE HCL 5MG TABLET PO SCH ×3 (10:19→17:41)
[2020-10-30] MEDS: PANTOPRAZOLE SODIUM 40 MG/VIAL IV SCH ×2 (10:19→17:41)
[2020-10-30] MEDS: MIDAZOLAM HCL 100 MG in DEXT 5% WATER 80 ML IV PRN ×2 (10:23→23:11)
[2020-10-30] MEDS: ACETAMINOPHEN 325MG TABLET PO PRN ×2 (12:18→19:42)
[2020-10-30] MEDS: FENTANYL CITRATE/PF 2,500 MCG in SODIUM CHLORIDE 0.9% 200 ML IV PRN (12:56)
[2020-10-30] MEDS: IPRATROPIUM/ALBUTEROL 0.5-3(2.5)MG/3ML NEB HHN PRN (15:26)
[2020-10-30 19:36] LABS: CLARITY URINE CLEAR (CLEAR); COLOR URINE DARK YELLOW (YELLOW); KETONES URINE NEGATIVE (NEGATIVE); LEUKOCYTE ESTERASE URINE TRACE (NEGATIVE); NITRITE URINE NEGATIVE (NEGATIVE); OCCULT BLOOD URINE NEGATIVE (NEGATIVE); PH URINE 8.5 (4.5-8.0); PROTEIN URINE 1+ (NEGATIVE); SPECIFIC GRAVITY URINE 1.017 (1.005-1.030); UROBILINOGEN URINE >8.0 E.U./dL (0.2-1.0)
[2020-10-31] VITALS (92 sets, daily range): BP systolic 94–128; BP diastolic 42–89
[2020-10-31] MEDS: FENTANYL CITRATE/PF 2,500 MCG in SODIUM CHLORIDE 0.9% 200 ML IV PRN (05:06)
[2020-10-31] MEDS: METOCLOPRAMIDE HCL 10MG/2ML VIAL IV SCH ×4 (05:10→23:56)
[2020-10-31 06:26] LABS: HEMOGLOBIN. 7.8 g/dL (14.0-18.0); MEAN CORPUSCULAR HEMOGLOBIN 24.6 pg (28.0-32.0); MEAN CORPUSCULAR VOLUME 75.7 fL (80.0-94.0); MEAN PLATELET VOLUME 8.3 fl (7.4-10.4); PLATELET 569 x1000/uL (130-400); RED BLOOD CELL COUNT 3.17 mill/uL (4.7-6.1); RED CELL DISTRIBUTION WIDTH 26.2 % (11.6-14.6)
[2020-10-31 06:37] LABS: CHLORIDE 97 mEq/L (98-107)
[2020-10-31] MEDS: IPRATROPIUM/ALBUTEROL 0.5-3(2.5)MG/3ML NEB HHN SCH ×3 (08:10→20:26)
[2020-10-31] MEDS: ACETYLCYSTEINE 100MG/ML 10% VIAL 4ML INH SCH ×2 (08:10→14:23)
[2020-10-31] MEDS: MIDODRINE HCL 5MG TABLET PO SCH ×3 (08:38→17:16)
[2020-10-31] MEDS: PANTOPRAZOLE SODIUM 40 MG/VIAL IV SCH ×2 (08:38→17:16)
[2020-10-31 09:26] LABS: PLATELET ESTIMATE INCREASED
[2020-10-31 10:36] LABS: BG BASE EXCESS 5.3 mmol/L (-2.0-2.0); BG CARBOXYHEMOGLOBIN 0.6 % (0.5-1.5); BG DEOXYHEMOGLOBIN 6.2 % (0.0-5.0); BG FRACTION INSPIRED OXYGEN 45; BG HCO3 ACT 29.8 mmol/L (22.0-26.0); BG METHEMOGLOBIN 0.1 % (0.0-1.5); BG OXYGEN SATURATION 93.8 % (92.0-98.5); BG OXYHEMOGLOBIN 93.1 % (94.0-97.0); BG PCO2 44.2 mmHg (35.0-45.0); BG PH 7.447 (7.350-7.450); BG PO2 72.7 mmHg (75.0-100.0); BG SAMPLE SITE RIGHT BRACHIAL; BG TOTAL HEMOGLOBIN 8.4 g/dL (12.0-18.0); BG TOTAL RESPIRATORY RATE 28 b/min; BG VENT MODE VENT - AC
[2020-10-31] MEDS ORDERED: SODIUM BICARBONATE 4% (2.4MEQ) 5ML VIAL IV ONE (11:39)
[2020-10-31] MEDS ORDERED: LIDOCAINE HCL 1% 20ML VIAL (Pyxis) INJ ONE (11:39)
[2020-10-31] MEDS ORDERED: MAGNESIUM 1 G PREMIX 100 ML IV NR (12:00)
[2020-10-31] MEDS: MIDAZOLAM HCL 100 MG in DEXT 5% WATER 80 ML IV PRN (13:06)
[2020-10-31] MEDS: ACETAMINOPHEN 325MG TABLET PO PRN (13:39)
[2020-11-01] VITALS (94 sets, daily range): BP systolic 81–143; BP diastolic 46–101
[2020-11-01] MEDS: ACETAMINOPHEN 325MG TABLET PO PRN ×2 (01:51→15:50)
[2020-11-01] MEDS: IPRATROPIUM/ALBUTEROL 0.5-3(2.5)MG/3ML NEB HHN SCH ×4 (02:18→20:35)
[2020-11-01] MEDS: FENTANYL CITRATE/PF 2,500 MCG in SODIUM CHLORIDE 0.9% 200 ML IV PRN ×2 (04:18→19:20)
[2020-11-01] MEDS: MIDAZOLAM HCL 100 MG in DEXT 5% WATER 80 ML IV PRN (05:33)
[2020-11-01] MEDS: METOCLOPRAMIDE HCL 10MG/2ML VIAL IV SCH ×3 (05:45→17:19)
[2020-11-01 05:47] LABS: HEMATOCRIT. 22.5 % (42.0-52.0); HEMOGLOBIN. 7.5 g/dL (14.0-18.0); MEAN CORPUSCULAR HEMOGLOBIN 25.2 pg (28.0-32.0); MEAN CORPUSCULAR VOLUME 75.3 fL (80.0-94.0); MEAN PLATELET VOLUME 7.7 fl (7.4-10.4); PLATELET 694 x1000/uL (130-400); RED BLOOD CELL COUNT 2.98 mill/uL (4.7-6.1); RED CELL DISTRIBUTION WIDTH 25.8 % (11.6-14.6)
[2020-11-01 05:50] LABS: CHLORIDE 98 mEq/L (98-107)
[2020-11-01 06:00] LABS: PHOSPHORUS 4.5 mg/dL (2.5-4.9)
[2020-11-01] MEDS: MIDODRINE HCL 5MG TABLET PO SCH ×3 (08:42→17:19)
[2020-11-01] MEDS: PANTOPRAZOLE SODIUM 40 MG/VIAL IV SCH ×2 (08:42→17:18)
[2020-11-01 11:51] LABS: BG BASE EXCESS 5.5 mmol/L (-2.0-2.0); BG DEOXYHEMOGLOBIN 3.6 % (0.0-5.0); BG FRACTION INSPIRED OXYGEN 50; BG HCO3 ACT 29.2 mmol/L (22.0-26.0); BG METHEMOGLOBIN 0.3 % (0.0-1.5); BG OXYGEN SATURATION 96.4 % (92.0-98.5); BG OXYHEMOGLOBIN 95.1 % (94.0-97.0); BG PCO2 39.1 mmHg (35.0-45.0); BG PH 7.491 (7.350-7.450); BG SAMPLE SITE RIGHT RADIAL; BG TOTAL HEMOGLOBIN 8.3 g/dL (12.0-18.0); BG TOTAL RESPIRATORY RATE 32 b/min; BG VENT MODE VENT - CPAP
[2020-11-01 14:16] LABS: PLATELET ESTIMATE INCREASED
[2020-11-01] MEDS: ACETYLCYSTEINE 100MG/ML 10% VIAL 4ML INH SCH (16:31)
[2020-11-01] MEDS: CEFEPIME 2,000 MG in DEXT 5% WATER 100 ML IV SCH (17:19)
[2020-11-02] VITALS (95 sets, daily range): BP systolic 79–124; BP diastolic 39–75
[2020-11-02] MEDS: MIDAZOLAM HCL 100 MG in DEXT 5% WATER 80 ML IV PRN ×3 (00:25→16:31)
[2020-11-02] MEDS: METOCLOPRAMIDE HCL 10MG/2ML VIAL IV SCH ×4 (00:26→17:38)
[2020-11-02] MEDS: IPRATROPIUM/ALBUTEROL 0.5-3(2.5)MG/3ML NEB HHN SCH ×5 (00:36→20:36)
[2020-11-02] MEDS: CEFEPIME 2,000 MG in DEXT 5% WATER 100 ML IV SCH (04:47)
[2020-11-02 05:54] LABS: CHLORIDE 100 mEq/L (98-107)
[2020-11-02 05:55] LABS: HEMATOCRIT. 24.1 % (42.0-52.0); HEMOGLOBIN. 7.6 g/dL (14.0-18.0); MEAN CORPUSCULAR HEMOGLOBIN 24.1 pg (28.0-32.0); MEAN CORPUSCULAR VOLUME 76.6 fL (80.0-94.0); MEAN PLATELET VOLUME 7.6 fl (7.4-10.4); PLATELET 861 x1000/uL (130-400); RED BLOOD CELL COUNT 3.14 mill/uL (4.7-6.1); RED CELL DISTRIBUTION WIDTH 25.6 % (11.6-14.6)
[2020-11-02] MEDS: FENTANYL CITRATE/PF 2,500 MCG in SODIUM CHLORIDE 0.9% 200 ML IV PRN ×2 (06:26→16:30)
[2020-11-02] MEDS: ACETYLCYSTEINE 100MG/ML 10% VIAL 4ML INH SCH ×2 (08:05→16:16)
[2020-11-02] MEDS: MIDODRINE HCL 5MG TABLET PO SCH ×3 (08:24→17:39)
[2020-11-02] MEDS: PANTOPRAZOLE SODIUM 40 MG/VIAL IV SCH ×2 (08:24→17:38)
[2020-11-02 09:37] LABS: BG BASE EXCESS 4.5 mmol/L (-2.0-2.0); BG CARBOXYHEMOGLOBIN 0.8 % (0.5-1.5); BG DEOXYHEMOGLOBIN 4.9 % (0.0-5.0); BG HCO3 ACT 29.2 mmol/L (22.0-26.0); BG METHEMOGLOBIN 0.3 % (0.0-1.5); BG PCO2 44.4 mmHg (35.0-45.0); BG PH 7.436 (7.350-7.450); BG SAMPLE SITE RIGHT RADIAL; BG TOTAL HEMOGLOBIN 7.9 g/dL (12.0-18.0); BG VENT MODE VENT - AC
[2020-11-02 10:24] LABS: PLATELET ESTIMATE INCREASED
[2020-11-02] MEDS ORDERED: PIPERONYL/PYRETHRINS (RID)120 ML SHAMPOO TOP SCH (11:00)
[2020-11-02] MEDS: LACTULOSE 20G/30ML UDC PO PRN (11:50)
[2020-11-02] MEDS: CEFTRIAXONE 1,000 MG in DEXTROSE 5% WATER 50 ML IV SCH (15:09)
[2020-11-02] MEDS: ACETAMINOPHEN 325MG TABLET PO PRN (16:08)
[2020-11-02] MEDS: FERROUS SULFATE 325MG TABLET PO SCH (17:38)
[2020-11-03] VITALS (65 sets, daily range): BP systolic 85–118; BP diastolic 41–87
[2020-11-03] MEDS: METOCLOPRAMIDE HCL 10MG/2ML VIAL IV SCH ×5 (00:11→23:53)
[2020-11-03] MEDS: IPRATROPIUM/ALBUTEROL 0.5-3(2.5)MG/3ML NEB HHN SCH ×4 (00:38→20:55)
[2020-11-03] MEDS: ACETYLCYSTEINE 100MG/ML 10% VIAL 4ML INH SCH ×2 (00:38→08:32)
[2020-11-03] MEDS: FENTANYL CITRATE/PF 2,500 MCG in SODIUM CHLORIDE 0.9% 200 ML IV PRN ×3 (03:14→23:49)
[2020-11-03] MEDS: MIDAZOLAM HCL 100 MG in DEXT 5% WATER 80 ML IV PRN ×2 (04:04→14:31)
[2020-11-03 06:41] LABS: HEMATOCRIT. 22.7 % (42.0-52.0); MEAN CORPUSCULAR HEMOGLOBIN 23.8 pg (28.0-32.0); MEAN CORPUSCULAR VOLUME 76.7 fL (80.0-94.0); MEAN PLATELET VOLUME 7.7 fl (7.4-10.4); PLATELET 922 x1000/uL (130-400); RED BLOOD CELL COUNT 2.96 mill/uL (4.7-6.1); RED CELL DISTRIBUTION WIDTH 25.7 % (11.6-14.6)
[2020-11-03 06:53] LABS: CHLORIDE 97 mEq/L (98-107)
[2020-11-03] MEDS: CEFTRIAXONE 1,000 MG in DEXTROSE 5% WATER 50 ML IV SCH (09:00)
[2020-11-03] MEDS: PANTOPRAZOLE SODIUM 40 MG/VIAL IV SCH ×2 (09:00→18:09)
[2020-11-03] MEDS: FERROUS SULFATE 325MG TABLET PO SCH ×3 (09:00→18:10)
[2020-11-03] MEDS: MIDODRINE HCL 5MG TABLET PO SCH ×3 (09:00→18:10)
[2020-11-03 10:43] LABS: PLATELET ESTIMATE MARKEDLY INCREASED
[2020-11-03 20:01] LABS: HEMATOCRIT 27.3 % (42.0-52.0); HEMOGLOBIN 9.1 g/dL (14.0-18.0)
[2020-11-03] MEDS: QUETIAPINE FUMARATE 25MG TABLET PO SCH (21:25)
[2020-11-04] VITALS (58 sets, daily range): BP systolic 84–121; BP diastolic 30–84
[2020-11-04] MEDS: ACETYLCYSTEINE 100MG/ML 10% VIAL 4ML INH SCH ×3 (02:20→14:38)
[2020-11-04] MEDS: IPRATROPIUM/ALBUTEROL 0.5-3(2.5)MG/3ML NEB HHN SCH ×4 (02:20→20:22)
[2020-11-04] MEDS: MIDAZOLAM HCL 100 MG in DEXT 5% WATER 80 ML IV PRN ×2 (05:18→21:27)
[2020-11-04] MEDS: METOCLOPRAMIDE HCL 10MG/2ML VIAL IV SCH ×4 (05:22→23:52)
[2020-11-04 07:00] LABS: HEMATOCRIT. 25.9 % (42.0-52.0); HEMOGLOBIN. 8.4 g/dL (14.0-18.0); MEAN CORPUSCULAR HEMOGLOBIN 25.6 pg (28.0-32.0); MEAN CORPUSCULAR VOLUME 79.1 fL (80.0-94.0); MEAN PLATELET VOLUME 7.6 fl (7.4-10.4); PLATELET 866 x1000/uL (130-400); RED BLOOD CELL COUNT 3.27 mill/uL (4.7-6.1); RED CELL DISTRIBUTION WIDTH 24.3 % (11.6-14.6)
[2020-11-04 07:17] LABS: CHLORIDE 99 mEq/L (98-107)
[2020-11-04] MEDS: FERROUS SULFATE 325MG TABLET PO SCH ×3 (08:07→18:52)
[2020-11-04] MEDS: PANTOPRAZOLE SODIUM 40 MG/VIAL IV SCH ×2 (08:07→17:20)
[2020-11-04] MEDS: CEFTRIAXONE 1,000 MG in DEXTROSE 5% WATER 50 ML IV SCH (08:09)
[2020-11-04] MEDS: MIDODRINE HCL 5MG TABLET PO SCH ×3 (08:22→17:21)
[2020-11-04] MEDS: QUETIAPINE FUMARATE 25MG TABLET PO SCH ×2 (08:28→20:55)
[2020-11-04 08:54] LABS: BG BASE EXCESS 4.2 mmol/L (-2.0-2.0); BG CARBOXYHEMOGLOBIN 1.3 % (0.5-1.5); BG DEOXYHEMOGLOBIN 5.1 % (0.0-5.0); BG HCO3 ACT 28.9 mmol/L (22.0-26.0); BG METHEMOGLOBIN 0.3 % (0.0-1.5); BG OXYGEN SATURATION 94.8 % (92.0-98.5); BG OXYHEMOGLOBIN 93.3 % (94.0-97.0); BG PCO2 43.5 mmHg (35.0-45.0); BG PO2 72.6 mmHg (75.0-100.0); BG SAMPLE SITE RIGHT RADIAL; BG TOTAL HEMOGLOBIN 11.2 g/dL (12.0-18.0); BG VENT MODE VENT - SIMV
[2020-11-04] MEDS ORDERED: POTASSIUM CHLORIDE 20MEQ TABLET SR PO NR (11:00)
[2020-11-04] MEDS ORDERED: ASPIRIN 325MG EC TABLET PO SCH (12:30)
[2020-11-04] MEDS: FENTANYL CITRATE/PF 2,500 MCG in SODIUM CHLORIDE 0.9% 200 ML IV PRN ×2 (12:48→21:28)
[2020-11-04 13:33] LABS: PLATELET ESTIMATE INCREASED
[2020-11-04 13:43] LABS: BG BASE EXCESS 3.5 mmol/L (-2.0-2.0); BG DEOXYHEMOGLOBIN 9.4 % (0.0-5.0); BG METHEMOGLOBIN 0.4 % (0.0-1.5); BG OXYGEN SATURATION 90.5 % (92.0-98.5); BG OXYHEMOGLOBIN 89.2 % (94.0-97.0); BG PCO2 36.8 mmHg (35.0-45.0); BG PH 7.483 (7.350-7.450); BG PO2 56.7 mmHg (75.0-100.0); BG SAMPLE SITE RIGHT RADIAL; BG TOTAL HEMOGLOBIN 10.9 g/dL (12.0-18.0); BG VENT MODE VENT - CPAP
[2020-11-04] MEDS ORDERED: MIDAZOLAM HCL 100 MG in DEXT 5% WATER 80 ML IV PRN (20:00)
[2020-11-04] MEDS: ACETAMINOPHEN 325MG TABLET PO PRN (20:56)
[2020-11-05] VITALS (85 sets, daily range): BP systolic 86–152; BP diastolic 23–88
[2020-11-05] MEDS: IPRATROPIUM/ALBUTEROL 0.5-3(2.5)MG/3ML NEB HHN PRN (00:15)
[2020-11-05] MEDS: ACETYLCYSTEINE 100MG/ML 10% VIAL 4ML INH SCH ×3 (00:16→15:30)
[2020-11-05] MEDS: FENTANYL CITRATE/PF 2,500 MCG in SODIUM CHLORIDE 0.9% 200 ML IV PRN ×2 (05:26→14:29)
[2020-11-05 05:59] LABS: CHLORIDE 100 mEq/L (98-107)
[2020-11-05 06:01] LABS: HEMATOCRIT. 27.5 % (42.0-52.0); HEMOGLOBIN. 8.9 g/dL (14.0-18.0); MEAN CORPUSCULAR HEMOGLOBIN 25.4 pg (28.0-32.0); MEAN CORPUSCULAR VOLUME 78.9 fL (80.0-94.0); PLATELET 938 x1000/uL (130-400); RED BLOOD CELL COUNT 3.48 mill/uL (4.7-6.1); RED CELL DISTRIBUTION WIDTH 25.3 % (11.6-14.6)
[2020-11-05] MEDS: MIDAZOLAM HCL 100 MG in DEXT 5% WATER 80 ML IV PRN ×2 (08:21→18:42)
[2020-11-05] MEDS: PANTOPRAZOLE SODIUM 40 MG/VIAL IV SCH (08:37)
[2020-11-05] MEDS: METOCLOPRAMIDE HCL 10MG/2ML VIAL IV SCH (08:37)
[2020-11-05] MEDS: FERROUS SULFATE 325MG TABLET PO SCH ×3 (08:37→18:05)
[2020-11-05] MEDS: MIDODRINE HCL 5MG TABLET PO SCH ×3 (08:38→18:05)
[2020-11-05] MEDS: QUETIAPINE FUMARATE 25MG TABLET PO SCH ×2 (08:38→20:54)
[2020-11-05] MEDS: IPRATROPIUM/ALBUTEROL 0.5-3(2.5)MG/3ML NEB HHN SCH ×3 (09:02→20:20)
[2020-11-05 09:39] LABS: PLATELET ESTIMATE INCREASED
[2020-11-05] MEDS ORDERED: PANTOPRAZOLE SODIUM 40 MG/VIAL IV SCH (11:15)
[2020-11-05] MEDS: CEFTRIAXONE 1,000 MG in DEXTROSE 5% WATER 50 ML IV SCH (11:31)
[2020-11-05] MEDS: ACETAMINOPHEN 325MG TABLET PO PRN (20:54)
[2020-11-06] VITALS (94 sets, daily range): BP systolic 73–168; BP diastolic 48–109
[2020-11-06] MEDS: IPRATROPIUM/ALBUTEROL 0.5-3(2.5)MG/3ML NEB HHN SCH ×4 (00:10→20:09)
[2020-11-06] MEDS: ACETYLCYSTEINE 100MG/ML 10% VIAL 4ML INH SCH ×3 (00:10→15:17)
[2020-11-06] MEDS: FENTANYL CITRATE/PF 2,500 MCG in SODIUM CHLORIDE 0.9% 200 ML IV PRN ×3 (01:10→16:50)
[2020-11-06] MEDS: MIDAZOLAM HCL 100 MG in DEXT 5% WATER 80 ML IV PRN ×2 (05:36→16:51)
[2020-11-06 06:00] LABS: HEMATOCRIT. 27.4 % (42.0-52.0); HEMOGLOBIN. 8.7 g/dL (14.0-18.0); MEAN CORPUSCULAR HEMOGLOBIN 25.1 pg (28.0-32.0); MEAN PLATELET VOLUME 7.1 fl (7.4-10.4); RED BLOOD CELL COUNT 3.46 mill/uL (4.7-6.1); RED CELL DISTRIBUTION WIDTH 25.2 % (11.6-14.6)
[2020-11-06 06:06] LABS: CHLORIDE 100 mEq/L (98-107)
[2020-11-06 06:14] LABS: PLATELET 1040 x1000/uL (130-400)
[2020-11-06] MEDS: QUETIAPINE FUMARATE 25MG TABLET PO SCH ×2 (09:55→20:53)
[2020-11-06] MEDS: MIDODRINE HCL 5MG TABLET PO SCH ×3 (09:55→18:24)
[2020-11-06] MEDS: FERROUS SULFATE 325MG TABLET PO SCH ×3 (09:55→18:24)
[2020-11-06] MEDS: CEFTRIAXONE 1,000 MG in DEXTROSE 5% WATER 50 ML IV SCH (09:55)
[2020-11-06] MEDS: PANTOPRAZOLE SODIUM 40 MG/VIAL IV SCH (09:55)
[2020-11-06 11:14] LABS: BG BASE EXCESS 5.1 mmol/L (-2.0-2.0); BG CARBOXYHEMOGLOBIN 0.4 % (0.5-1.5); BG DEOXYHEMOGLOBIN 8.8 % (0.0-5.0); BG FRACTION INSPIRED OXYGEN 40; BG HCO3 ACT 29.3 mmol/L (22.0-26.0); BG METHEMOGLOBIN 0.3 % (0.0-1.5); BG OXYGEN SATURATION 91.1 % (92.0-98.5); BG OXYHEMOGLOBIN 90.5 % (94.0-97.0); BG PH 7.462 (7.350-7.450); BG PO2 63.8 mmHg (75.0-100.0); BG SAMPLE SITE RIGHT RADIAL; BG TOTAL HEMOGLOBIN 9.8 g/dL (12.0-18.0); BG TOTAL RESPIRATORY RATE 21 b/min; BG VENT MODE VENT - AC
[2020-11-06 11:19] LABS: PLATELET ESTIMATE MARKEDLY INCREASED
[2020-11-06] MEDS: IPRATROPIUM/ALBUTEROL 0.5-3(2.5)MG/3ML NEB HHN PRN (12:04)
[2020-11-07] VITALS (80 sets, daily range): BP systolic 93–151; BP diastolic 40–89
[2020-11-07] MEDS: IPRATROPIUM/ALBUTEROL 0.5-3(2.5)MG/3ML NEB HHN SCH ×5 (00:07→20:30)
[2020-11-07] MEDS: FENTANYL CITRATE/PF 2,500 MCG in SODIUM CHLORIDE 0.9% 200 ML IV PRN ×3 (02:41→21:18)
[2020-11-07] MEDS: MIDAZOLAM HCL 100 MG in DEXT 5% WATER 80 ML IV PRN ×3 (03:37→22:31)
[2020-11-07] MEDS: FERROUS SULFATE 325MG TABLET PO SCH ×3 (08:00→17:01)
[2020-11-07 08:50] LABS: HEMATOCRIT. 27.3 % (42.0-52.0); HEMOGLOBIN. 8.8 g/dL (14.0-18.0); MEAN CORPUSCULAR HEMOGLOBIN 25.1 pg (28.0-32.0); MEAN CORPUSCULAR VOLUME 77.6 fL (80.0-94.0); MEAN PLATELET VOLUME 6.6 fl (7.4-10.4); RED BLOOD CELL COUNT 3.52 mill/uL (4.7-6.1); RED CELL DISTRIBUTION WIDTH 25.3 % (11.6-14.6)
[2020-11-07 08:59] LABS: CHLORIDE 100 mEq/L (98-107)
[2020-11-07] MEDS: QUETIAPINE FUMARATE 25MG TABLET PO SCH ×2 (09:00→21:16)
[2020-11-07] MEDS: MIDODRINE HCL 5MG TABLET PO SCH ×3 (09:00→17:00)
[2020-11-07 09:03] LABS: PLATELET 1003 x1000/uL (130-400)
[2020-11-07 09:18] LABS: PLATELET ESTIMATE MARKEDLY INCREASED
[2020-11-07] MEDS: ACETAMINOPHEN 325MG TABLET PO PRN (09:34)
[2020-11-07] MEDS: PANTOPRAZOLE SODIUM 40 MG/VIAL IV SCH (09:37)
[2020-11-07] MEDS: CEFTRIAXONE 1,000 MG in DEXTROSE 5% WATER 50 ML IV SCH (10:30)
[2020-11-07] MEDS ORDERED: ROCURONIUM BROMIDE 10MG/ML VIAL 5ML IV ONE (18:26)
[2020-11-07] MEDS ORDERED: EPHEDRINE SULFATE 50MG/ML VIAL ONE (18:33)
[2020-11-08] VITALS (85 sets, daily range): BP systolic 74–230; BP diastolic 35–124
[2020-11-08] MEDS: IPRATROPIUM/ALBUTEROL 0.5-3(2.5)MG/3ML NEB HHN SCH ×4 (02:16→20:36)
[2020-11-08] MEDS: FENTANYL CITRATE/PF 2,500 MCG in SODIUM CHLORIDE 0.9% 200 ML IV PRN ×2 (05:46→13:57)
[2020-11-08] MEDS: FERROUS SULFATE 325MG TABLET PO SCH ×3 (09:31→17:58)
[2020-11-08] MEDS: MIDODRINE HCL 5MG TABLET PO SCH ×3 (09:31→17:58)
[2020-11-08] MEDS: PANTOPRAZOLE SODIUM 40 MG/VIAL IV SCH (09:31)
[2020-11-08] MEDS: QUETIAPINE FUMARATE 25MG TABLET PO SCH ×2 (09:32→21:00)
[2020-11-08] MEDS: ACETAMINOPHEN 325MG TABLET PO PRN (09:32)
[2020-11-08] MEDS: MIDAZOLAM HCL 100 MG in DEXT 5% WATER 80 ML IV PRN ×2 (10:23→22:04)
[2020-11-08 10:29] LABS: BASOPHILS % 0.4 % (0.0-2.0); EOSINOPHILS % 2.9 % (0.0-5.0); HEMATOCRIT. 26.7 % (42.0-52.0); HEMOGLOBIN. 8.8 g/dL (14.0-18.0); MEAN CORPUSCULAR HEMOGLOBIN 25.5 pg (28.0-32.0); MEAN CORPUSCULAR VOLUME 77.9 fL (80.0-94.0); MEAN PLATELET VOLUME 6.4 fl (7.4-10.4); MONOCYTES % 13.5 % (2.0-8.0); NEUTROPHILS % 70.2 % (40.0-76.0); RED BLOOD CELL COUNT 3.43 mill/uL (4.7-6.1); RED CELL DISTRIBUTION WIDTH 24.4 % (11.6-14.6)
[2020-11-08 10:34] LABS: CHLORIDE 102 mEq/L (98-107)
[2020-11-08 10:54] LABS: PLATELET 1068 x1000/uL (130-400)
[2020-11-08] MEDS: CEFTRIAXONE 1,000 MG in DEXTROSE 5% WATER 50 ML IV SCH (11:07)
[2020-11-09] VITALS (74 sets, daily range): BP systolic 84–177; BP diastolic 46–131
[2020-11-09] MEDS: IPRATROPIUM/ALBUTEROL 0.5-3(2.5)MG/3ML NEB HHN SCH ×5 (03:16→20:23)
[2020-11-09] MEDS: FENTANYL CITRATE/PF 2,500 MCG in SODIUM CHLORIDE 0.9% 200 ML IV PRN ×2 (05:15→15:03)
[2020-11-09] MEDS: MIDAZOLAM HCL 100 MG in DEXT 5% WATER 80 ML IV PRN ×2 (06:48→18:31)
[2020-11-09 06:56] LABS: INR 1.2; PARTIAL THROMBOPLASTIN TIME 36.1 sec (23.4-31.0)
[2020-11-09 06:57] LABS: BASOPHILS % 0.5 % (0.0-2.0); EOSINOPHILS % 3.7 % (0.0-5.0); HEMATOCRIT. 24.9 % (42.0-52.0); HEMOGLOBIN. 8.1 g/dL (14.0-18.0); LYMPHOCYTES % 16.3 % (20.0-50.0); MEAN CORPUSCULAR HEMOGLOBIN 25.2 pg (28.0-32.0); MEAN CORPUSCULAR VOLUME 78.1 fL (80.0-94.0); MEAN PLATELET VOLUME 7.1 fl (7.4-10.4); MONOCYTES % 13.6 % (2.0-8.0); NEUTROPHILS % 65.9 % (40.0-76.0); RED BLOOD CELL COUNT 3.19 mill/uL (4.7-6.1); RED CELL DISTRIBUTION WIDTH 24.7 % (11.6-14.6)
[2020-11-09 07:06] LABS: CHLORIDE 99 mEq/L (98-107)
[2020-11-09 07:53] LABS: PLATELET 1000 x1000/uL (130-400)
[2020-11-09] MEDS: FERROUS SULFATE 325MG TABLET PO SCH ×3 (08:00→18:48)
[2020-11-09] MEDS: MIDODRINE HCL 5MG TABLET PO SCH ×3 (09:00→17:00)
[2020-11-09] MEDS: QUETIAPINE FUMARATE 25MG TABLET PO SCH ×2 (09:00→20:35)
[2020-11-09] MEDS: CEFTRIAXONE 1,000 MG in DEXTROSE 5% WATER 50 ML IV SCH (09:22)
[2020-11-09] MEDS: PANTOPRAZOLE SODIUM 40 MG/VIAL IV SCH (09:22)
[2020-11-09] MEDS: ACETAMINOPHEN 325MG TABLET PO PRN ×2 (09:22→20:35)
[2020-11-09 10:46] LABS: BG BASE EXCESS 2.2 mmol/L (-2.0-2.0); BG CARBOXYHEMOGLOBIN 0.8 % (0.5-1.5); BG DEOXYHEMOGLOBIN 3.8 % (0.0-5.0); BG FRACTION INSPIRED OXYGEN 40; BG METHEMOGLOBIN 0.3 % (0.0-1.5); BG OXYGEN SATURATION 96.2 % (92.0-98.5); BG OXYHEMOGLOBIN 95.1 % (94.0-97.0); BG PCO2 36.9 mmHg (35.0-45.0); BG PH 7.465 (7.350-7.450); BG PO2 80.8 mmHg (75.0-100.0); BG SAMPLE SITE RIGHT RADIAL; BG VENT MODE VENT - AC
[2020-11-09] MEDS ORDERED: MIDAZOLAM HCL 5 MG/5 ML VIAL ONE (11:32)
[2020-11-09] MEDS ORDERED: FENTANYL CITRATE/PF 50MCG/ML 2ML VIAL ONE (11:32)
[2020-11-09] MEDS ORDERED: MIDAZOLAM HCL 5 MG/5 ML VIAL IV PRN (11:32)
[2020-11-10] VITALS (71 sets, daily range): BP systolic 87–142; BP diastolic 46–100
[2020-11-10] MEDS: FENTANYL CITRATE/PF 2,500 MCG in SODIUM CHLORIDE 0.9% 200 ML IV PRN ×3 (00:58→18:40)
[2020-11-10] MEDS: IPRATROPIUM/ALBUTEROL 0.5-3(2.5)MG/3ML NEB HHN SCH ×4 (04:19→20:41)
[2020-11-10] MEDS: MIDAZOLAM HCL 100 MG in DEXT 5% WATER 80 ML IV PRN ×2 (05:08→18:42)
[2020-11-10 06:45] LABS: CHLORIDE 101 mEq/L (98-107)
[2020-11-10 06:46] LABS: HEMATOCRIT. 27.8 % (42.0-52.0); HEMOGLOBIN. 8.8 g/dL (14.0-18.0); MEAN CORPUSCULAR HEMOGLOBIN 25.1 pg (28.0-32.0); MEAN CORPUSCULAR VOLUME 79.2 fL (80.0-94.0); MEAN PLATELET VOLUME 7.1 fl (7.4-10.4); PLATELET 878 x1000/uL (130-400); RED CELL DISTRIBUTION WIDTH 24.6 % (11.6-14.6)
[2020-11-10] MEDS: QUETIAPINE FUMARATE 25MG TABLET PO SCH ×2 (09:02→21:00)
[2020-11-10] MEDS: FERROUS SULFATE 325MG TABLET PO SCH ×3 (09:02→17:19)
[2020-11-10] MEDS: MIDODRINE HCL 5MG TABLET PO SCH ×3 (09:03→17:20)
[2020-11-10] MEDS: PANTOPRAZOLE SODIUM 40 MG/VIAL IV SCH (09:07)
[2020-11-10] MEDS: CEFTRIAXONE 1,000 MG in DEXTROSE 5% WATER 50 ML IV SCH (09:07)
[2020-11-10] MEDS ORDERED: MORPHINE SULFATE 2 MG/ML CPJ (NOT FOR IM USE) IV PRN (12:45)
[2020-11-10] MEDS: METOCLOPRAMIDE HCL 10MG/2ML VIAL IV SCH ×2 (13:21→17:20)
[2020-11-10] MEDS: LORAZEPAM 2MG/ML CPJ IV PRN (13:23)
[2020-11-10 14:22] LABS: PLATELET ESTIMATE INCREASED
[2020-11-10] MEDS ORDERED: MORPHINE SULFATE 4 MG/ML CPJ (NOT FOR IM USE) IV NR (15:30)
[2020-11-10] MEDS: ACETAMINOPHEN 325MG TABLET PO PRN (16:34)
[2020-11-11] VITALS (35 sets, daily range): BP systolic 90–162; BP diastolic 35–85
[2020-11-11] MEDS: METOCLOPRAMIDE HCL 10MG/2ML VIAL IV SCH ×4 (00:16→17:31)
[2020-11-11] MEDS: ACETAMINOPHEN 325MG TABLET PO PRN ×2 (00:17→20:45)
[2020-11-11] MEDS: IPRATROPIUM/ALBUTEROL 0.5-3(2.5)MG/3ML NEB HHN SCH ×5 (00:56→20:55)
[2020-11-11] MEDS: MIDAZOLAM HCL 100 MG in DEXT 5% WATER 80 ML IV PRN (05:08)
[2020-11-11] MEDS: FENTANYL CITRATE/PF 2,500 MCG in SODIUM CHLORIDE 0.9% 200 ML IV PRN ×2 (05:09→17:36)
[2020-11-11] MEDS: MIDODRINE HCL 5MG TABLET PO SCH ×3 (09:20→17:31)
[2020-11-11] MEDS: FERROUS SULFATE 325MG TABLET PO SCH ×3 (09:20→17:31)
[2020-11-11] MEDS: QUETIAPINE FUMARATE 25MG TABLET PO SCH ×2 (09:21→19:55)
[2020-11-11] MEDS: PANTOPRAZOLE SODIUM 40 MG/VIAL IV SCH (09:22)
[2020-11-11] MEDS: IPRATROPIUM/ALBUTEROL 0.5-3(2.5)MG/3ML NEB HHN PRN (12:20)
[2020-11-12] VITALS (64 sets, daily range): BP systolic 89–162; BP diastolic 17–118
[2020-11-12] MEDS: MORPHINE SULFATE 10 MG/ML CPJ IV PRN ×5 (01:03→22:17)
[2020-11-12] MEDS: METOCLOPRAMIDE HCL 10MG/2ML VIAL IV SCH ×5 (01:03→23:26)
[2020-11-12] MEDS: IPRATROPIUM/ALBUTEROL 0.5-3(2.5)MG/3ML NEB HHN SCH ×4 (02:27→21:03)
[2020-11-12 06:05] LABS: CHLORIDE 103 mEq/L (98-107)
[2020-11-12 06:28] LABS: BASOPHILS % 0.1 % (0.0-2.0); EOSINOPHILS % 1.8 % (0.0-5.0); HEMATOCRIT. 28.3 % (42.0-52.0); HEMOGLOBIN. 8.7 g/dL (14.0-18.0); MEAN CORPUSCULAR HEMOGLOBIN 24.4 pg (28.0-32.0); MEAN CORPUSCULAR VOLUME 78.9 fL (80.0-94.0); MEAN PLATELET VOLUME 7.1 fl (7.4-10.4); MONOCYTES % 11.5 % (2.0-8.0); NEUTROPHILS % 73.6 % (40.0-76.0); PLATELET 890 x1000/uL (130-400); RED BLOOD CELL COUNT 3.58 mill/uL (4.7-6.1)
[2020-11-12] MEDS: LORAZEPAM 2MG/ML CPJ IV PRN ×2 (08:17→12:29)
[2020-11-12] MEDS: MIDODRINE HCL 5MG TABLET PO SCH ×3 (09:50→17:48)
[2020-11-12] MEDS: PANTOPRAZOLE SODIUM 40 MG/VIAL IV SCH (09:50)
[2020-11-12] MEDS: QUETIAPINE FUMARATE 25MG TABLET PO SCH (09:51)
[2020-11-12] MEDS: FERROUS SULFATE 325MG TABLET PO SCH ×3 (09:51→17:48)
[2020-11-12] MEDS ORDERED: QUETIAPINE FUMARATE 25MG TABLET PO NR ×2 (12:15→13:15)
[2020-11-12] MEDS: PIPERACILLIN/TAZOBACTAM 3.375 G in DEXT 5% WATER 100 ML IV SCH ×2 (16:26→21:03)
[2020-11-12] MEDS: LORAZEPAM 2MG/ML CPJ IM PRN ×2 (18:14→22:16)
[2020-11-12] MEDS: QUETIAPINE FUMARATE 50MG TABLET PO SCH (21:03)
[2020-11-13] VITALS (45 sets, daily range): BP systolic 72–148; BP diastolic 44–98
[2020-11-13] MEDS: IPRATROPIUM/ALBUTEROL 0.5-3(2.5)MG/3ML NEB HHN SCH ×4 (00:28→20:51)
[2020-11-13] MEDS: PIPERACILLIN/TAZOBACTAM 3.375 G in DEXT 5% WATER 100 ML IV SCH ×4 (04:13→22:40)
[2020-11-13] MEDS: MORPHINE SULFATE 10 MG/ML CPJ IV PRN ×2 (04:35→21:51)
[2020-11-13] MEDS: LORAZEPAM 2MG/ML CPJ IM PRN (04:36)
[2020-11-13] MEDS: METOCLOPRAMIDE HCL 10MG/2ML VIAL IV SCH ×3 (05:51→17:15)
[2020-11-13 06:44] LABS: CHLORIDE 103 mEq/L (98-107)
[2020-11-13 06:47] LABS: BASOPHILS % 0.5 % (0.0-2.0); EOSINOPHILS % 3.3 % (0.0-5.0); HEMATOCRIT. 27.5 % (42.0-52.0); HEMOGLOBIN. 8.6 g/dL (14.0-18.0); MEAN CORPUSCULAR HEMOGLOBIN 24.8 pg (28.0-32.0); MEAN CORPUSCULAR VOLUME 78.9 fL (80.0-94.0); MEAN PLATELET VOLUME 7.4 fl (7.4-10.4); MONOCYTES % 10.4 % (2.0-8.0); NEUTROPHILS % 72.8 % (40.0-76.0); PLATELET 653 x1000/uL (130-400); RED BLOOD CELL COUNT 3.48 mill/uL (4.7-6.1); RED CELL DISTRIBUTION WIDTH 24.3 % (11.6-14.6)
[2020-11-13] MEDS: FERROUS SULFATE 325MG TABLET PO SCH ×3 (08:58→17:15)
[2020-11-13] MEDS: QUETIAPINE FUMARATE 50MG TABLET PO SCH ×2 (08:58→21:20)
[2020-11-13] MEDS: MIDODRINE HCL 5MG TABLET PO SCH ×3 (08:59→17:15)
[2020-11-13] MEDS: PANTOPRAZOLE SODIUM 40 MG/VIAL IV SCH (08:59)
[2020-11-14] VITALS (49 sets, daily range): BP systolic 92–147; BP diastolic 28–87
[2020-11-14] MEDS: IPRATROPIUM/ALBUTEROL 0.5-3(2.5)MG/3ML NEB HHN SCH ×5 (00:18→23:30)
[2020-11-14] MEDS: METOCLOPRAMIDE HCL 10MG/2ML VIAL IV SCH ×4 (00:47→17:42)
[2020-11-14] MEDS: LORAZEPAM 2MG/ML CPJ IM PRN ×4 (01:07→16:41)
[2020-11-14] MEDS: PIPERACILLIN/TAZOBACTAM 3.375 G in DEXT 5% WATER 100 ML IV SCH ×2 (03:30→11:04)
[2020-11-14 05:57] LABS: BASOPHILS % 0.2 % (0.0-2.0); EOSINOPHILS % 3.5 % (0.0-5.0); HEMATOCRIT. 27.4 % (42.0-52.0); HEMOGLOBIN. 8.9 g/dL (14.0-18.0); LYMPHOCYTES % 13.6 % (20.0-50.0); MEAN CORPUSCULAR HEMOGLOBIN 25.4 pg (28.0-32.0); MEAN CORPUSCULAR VOLUME 78.8 fL (80.0-94.0); MONOCYTES % 10.7 % (2.0-8.0); PLATELET 725 x1000/uL (130-400); RED BLOOD CELL COUNT 3.48 mill/uL (4.7-6.1); RED CELL DISTRIBUTION WIDTH 24.2 % (11.6-14.6)
[2020-11-14 06:11] LABS: CHLORIDE 103 mEq/L (98-107)
[2020-11-14] MEDS: MORPHINE SULFATE 10 MG/ML CPJ IV PRN ×3 (08:04→16:42)
[2020-11-14] MEDS: FERROUS SULFATE 325MG TABLET PO SCH ×3 (08:41→17:41)
[2020-11-14] MEDS: QUETIAPINE FUMARATE 50MG TABLET PO SCH ×2 (08:41→21:45)
[2020-11-14] MEDS: MIDODRINE HCL 5MG TABLET PO SCH ×3 (08:41→17:42)
[2020-11-14] MEDS: PANTOPRAZOLE SODIUM 40 MG/VIAL IV SCH (12:58)
[2020-11-14] MEDS: AMPICILLIN SOD/SULBACTAM NA 3 G in SODIUM CHLORIDE 0.9% 100 ML IV SCH ×2 (16:41→21:45)
[2020-11-15] VITALS (32 sets, daily range): BP systolic 93–155; BP diastolic 52–130
[2020-11-15] MEDS: METOCLOPRAMIDE HCL 10MG/2ML VIAL IV SCH ×5 (00:18→20:47)
[2020-11-15] MEDS: AMPICILLIN SOD/SULBACTAM NA 3 G in SODIUM CHLORIDE 0.9% 100 ML IV SCH ×4 (03:58→20:48)
[2020-11-15] MEDS: LORAZEPAM 2MG/ML CPJ IM PRN ×3 (04:46→20:48)
[2020-11-15 07:33] LABS: CHLORIDE 108 mEq/L (98-107)
[2020-11-15 07:52] LABS: BASOPHILS % 0.3 % (0.0-2.0); EOSINOPHILS % 3.5 % (0.0-5.0); HEMATOCRIT. 25.6 % (42.0-52.0); HEMOGLOBIN. 8.3 g/dL (14.0-18.0); LYMPHOCYTES % 15.5 % (20.0-50.0); MEAN CORPUSCULAR HEMOGLOBIN 25.5 pg (28.0-32.0); MEAN CORPUSCULAR VOLUME 78.6 fL (80.0-94.0); MEAN PLATELET VOLUME 7.1 fl (7.4-10.4); MONOCYTES % 10.1 % (2.0-8.0); NEUTROPHILS % 70.6 % (40.0-76.0); PLATELET 702 x1000/uL (130-400); RED BLOOD CELL COUNT 3.26 mill/uL (4.7-6.1); RED CELL DISTRIBUTION WIDTH 23.6 % (11.6-14.6)
[2020-11-15] MEDS: IPRATROPIUM/ALBUTEROL 0.5-3(2.5)MG/3ML NEB HHN SCH ×3 (08:25→20:19)
[2020-11-15] MEDS: MIDODRINE HCL 5MG TABLET PO SCH ×3 (09:02→16:54)
[2020-11-15] MEDS: FERROUS SULFATE 325MG TABLET PO SCH ×3 (09:03→16:55)
[2020-11-15] MEDS: PANTOPRAZOLE SODIUM 40 MG/VIAL IV SCH (09:04)
[2020-11-15] MEDS: QUETIAPINE FUMARATE 25MG TABLET PO SCH (16:54)
[2020-11-16] VITALS (19 sets, daily range): BP systolic 98–157; BP diastolic 58–84
[2020-11-16] MEDS: IPRATROPIUM/ALBUTEROL 0.5-3(2.5)MG/3ML NEB HHN SCH ×3 (00:13→20:41)
[2020-11-16] MEDS: AMPICILLIN SOD/SULBACTAM NA 3 G in SODIUM CHLORIDE 0.9% 100 ML IV SCH ×4 (04:57→23:09)
[2020-11-16] MEDS: METOCLOPRAMIDE HCL 10MG/2ML VIAL IV SCH ×4 (06:40→23:09)
[2020-11-16] MEDS: MIDODRINE HCL 5MG TABLET PO SCH (09:02)
[2020-11-16] MEDS: FERROUS SULFATE 325MG TABLET PO SCH ×3 (09:03→17:56)
[2020-11-16] MEDS: QUETIAPINE FUMARATE 50MG TABLET PO SCH (09:08)
[2020-11-16] MEDS: IPRATROPIUM/ALBUTEROL 0.5-3(2.5)MG/3ML NEB HHN PRN (12:34)
[2020-11-16] MEDS: QUETIAPINE FUMARATE 25MG TABLET PO SCH (16:17)
[2020-11-17] VITALS (12 sets, daily range): BP systolic 96–132; BP diastolic 59–82
[2020-11-17] MEDS: IPRATROPIUM/ALBUTEROL 0.5-3(2.5)MG/3ML NEB HHN SCH ×3 (00:56→14:50)
[2020-11-17] MEDS: METOCLOPRAMIDE HCL 10MG/2ML VIAL IV SCH ×3 (05:24→18:15)
[2020-11-17] MEDS: AMPICILLIN SOD/SULBACTAM NA 3 G in SODIUM CHLORIDE 0.9% 100 ML IV SCH ×4 (05:24→21:15)
[2020-11-17] MEDS: FERROUS SULFATE 325MG TABLET PO SCH ×3 (09:15→18:16)
[2020-11-17] MEDS: QUETIAPINE FUMARATE 50MG TABLET PO SCH (09:15)
[2020-11-17] MEDS: LORAZEPAM 2MG/ML CPJ IM PRN (12:39)
[2020-11-17] MEDS: QUETIAPINE FUMARATE 25MG TABLET PO SCH (18:15)
[2020-11-18] VITALS (12 sets, daily range): BP systolic 97–127; BP diastolic 54–75
[2020-11-18] MEDS: METOCLOPRAMIDE HCL 10MG/2ML VIAL IV SCH ×4 (00:36→17:00)
[2020-11-18] MEDS: AMPICILLIN SOD/SULBACTAM NA 3 G in SODIUM CHLORIDE 0.9% 100 ML IV SCH ×3 (04:04→15:40)
[2020-11-18] MEDS: FERROUS SULFATE 325MG TABLET PO SCH ×3 (08:59→17:00)
[2020-11-18] MEDS: QUETIAPINE FUMARATE 50MG TABLET PO SCH (09:00)
[2020-11-18] MEDS: QUETIAPINE FUMARATE 25MG TABLET PO SCH (16:21)
[2020-11-18 16:32] LABS: BASOPHILS % 0.2 % (0.0-2.0); EOSINOPHILS % 5.8 % (0.0-5.0); HEMATOCRIT. 26.3 % (42.0-52.0); HEMOGLOBIN. 8.7 g/dL (14.0-18.0); LYMPHOCYTES % 20.3 % (20.0-50.0); MEAN CORPUSCULAR HEMOGLOBIN 26.1 pg (28.0-32.0); MEAN PLATELET VOLUME 7.4 fl (7.4-10.4); MONOCYTES % 11.3 % (2.0-8.0); NEUTROPHILS % 62.4 % (40.0-76.0); PLATELET 543 x1000/uL (130-400); RED BLOOD CELL COUNT 3.33 mill/uL (4.7-6.1)
[2020-11-18 16:34] LABS: CHLORIDE 103 mEq/L (98-107)
[2020-11-19] VITALS (11 sets, daily range): BP systolic 94–127; BP diastolic 60–80
[2020-11-19] MEDS: METOCLOPRAMIDE HCL 10MG/2ML VIAL IV SCH ×4 (00:51→17:36)
[2020-11-19] MEDS: HYDROCODONE/ACETAMINOPHEN 5/325MG TABLET PO PRN (00:53)
[2020-11-19] MEDS: QUETIAPINE FUMARATE 50MG TABLET PO SCH (08:53)
[2020-11-19] MEDS: FERROUS SULFATE 325MG TABLET PO SCH ×3 (08:54→17:35)
[2020-11-19] MEDS: QUETIAPINE FUMARATE 25MG TABLET PO SCH (17:28)
[2020-11-20] VITALS (12 sets, daily range): BP systolic 101–125; BP diastolic 53–72
[2020-11-20] MEDS: IPRATROPIUM/ALBUTEROL 0.5-3(2.5)MG/3ML NEB HHN SCH ×3 (00:53→16:13)
[2020-11-20] MEDS: METOCLOPRAMIDE HCL 10MG/2ML VIAL IV SCH ×5 (06:28→23:49)
[2020-11-20] MEDS: FERROUS SULFATE 325MG TABLET PO SCH ×3 (10:13→18:12)
[2020-11-20] MEDS: QUETIAPINE FUMARATE 50MG TABLET PO SCH (10:13)
[2020-11-20] MEDS: DOCUSATE SODIUM SUGAR FREE 100MG/10ML UDC NG SCH (11:00)
[2020-11-20] MEDS: QUETIAPINE FUMARATE 25MG TABLET PO SCH (17:59)
[2020-11-21] VITALS (13 sets, daily range): BP systolic 9–118; BP diastolic 50–74
[2020-11-21] MEDS: IPRATROPIUM/ALBUTEROL 0.5-3(2.5)MG/3ML NEB HHN SCH ×3 (01:28→16:30)
[2020-11-21] MEDS: METOCLOPRAMIDE HCL 10MG/2ML VIAL IV SCH ×3 (05:11→17:07)
[2020-11-21] MEDS: FERROUS SULFATE 325MG TABLET PO SCH ×3 (08:19→17:07)
[2020-11-21] MEDS: QUETIAPINE FUMARATE 50MG TABLET PO SCH (08:30)
[2020-11-21] MEDS: DOCUSATE SODIUM SUGAR FREE 100MG/10ML UDC NG SCH (08:30)
[2020-11-21] MEDS: QUETIAPINE FUMARATE 25MG TABLET PO SCH (17:07)
[2020-11-22] VITALS (11 sets, daily range): BP systolic 98–128; BP diastolic 45–75
[2020-11-22] MEDS: METOCLOPRAMIDE HCL 10MG/2ML VIAL IV SCH ×4 (00:50→17:49)
[2020-11-22] MEDS: IPRATROPIUM/ALBUTEROL 0.5-3(2.5)MG/3ML NEB HHN SCH ×2 (00:53→09:11)
[2020-11-22] MEDS: FERROUS SULFATE 325MG TABLET PO SCH ×3 (08:20→17:49)
[2020-11-22] MEDS: DOCUSATE SODIUM SUGAR FREE 100MG/10ML UDC NG SCH (08:36)
[2020-11-22] MEDS: QUETIAPINE FUMARATE 50MG TABLET PO SCH (08:36)
[2020-11-22 09:09] LABS: BASOPHILS % 0.2 % (0.0-2.0); EOSINOPHILS % 5.3 % (0.0-5.0); HEMATOCRIT. 25.2 % (42.0-52.0); HEMOGLOBIN. 8.2 g/dL (14.0-18.0); LYMPHOCYTES % 17.8 % (20.0-50.0); MEAN CORPUSCULAR HEMOGLOBIN 25.6 pg (28.0-32.0); MEAN PLATELET VOLUME 8.1 fl (7.4-10.4); MONOCYTES % 11.4 % (2.0-8.0); NEUTROPHILS % 65.3 % (40.0-76.0); PLATELET 455 x1000/uL (130-400); RED BLOOD CELL COUNT 3.19 mill/uL (4.7-6.1); RED CELL DISTRIBUTION WIDTH 24.6 % (11.6-14.6)
[2020-11-22 09:38] LABS: CHLORIDE 93 mEq/L (98-107)
[2020-11-22] MEDS: SODIUM CHLORIDE 0.9% 1,000 ML IV SCH (12:26)
[2020-11-22] MEDS: QUETIAPINE FUMARATE 25MG TABLET PO SCH (17:49)
[2020-11-23] VITALS (13 sets, daily range): BP systolic 103–150; BP diastolic 46–124
[2020-11-23] MEDS: METOCLOPRAMIDE HCL 10MG/2ML VIAL IV SCH ×5 (00:21→23:23)
[2020-11-23] MEDS: HYDROCODONE/ACETAMINOPHEN 5/325MG TABLET PO PRN ×2 (00:31→11:17)
[2020-11-23] MEDS: IPRATROPIUM/ALBUTEROL 0.5-3(2.5)MG/3ML NEB HHN SCH ×3 (03:22→16:36)
[2020-11-23] MEDS: SODIUM CHLORIDE 0.9% 1,000 ML IV SCH (05:00)
[2020-11-23 07:17] LABS: BASOPHILS % 0.2 % (0.0-2.0); EOSINOPHILS % 14.3 % (0.0-5.0); HEMATOCRIT. 24.1 % (42.0-52.0); HEMOGLOBIN. 7.8 g/dL (14.0-18.0); MEAN CORPUSCULAR HEMOGLOBIN 25.5 pg (28.0-32.0); MEAN PLATELET VOLUME 7.6 fl (7.4-10.4); MONOCYTES % 12.7 % (2.0-8.0); NEUTROPHILS % 53.8 % (40.0-76.0); PLATELET 398 x1000/uL (130-400); RED BLOOD CELL COUNT 3.05 mill/uL (4.7-6.1); RED CELL DISTRIBUTION WIDTH 24.3 % (11.6-14.6)
[2020-11-23 07:28] LABS: CHLORIDE 98 mEq/L (98-107)
[2020-11-23] MEDS: FERROUS SULFATE 325MG TABLET PO SCH ×3 (08:20→18:15)
[2020-11-23] MEDS: QUETIAPINE FUMARATE 50MG TABLET PO SCH (08:39)
[2020-11-23] MEDS: DOCUSATE SODIUM SUGAR FREE 100MG/10ML UDC NG SCH (08:39)
[2020-11-23] MEDS: QUETIAPINE FUMARATE 25MG TABLET PO SCH (16:56)
[2020-11-23] MEDS: HYDROCORTISONE 2.5% CREAM 20GM TOP SCH (21:13)
[2020-11-24] VITALS (12 sets, daily range): BP systolic 94–187; BP diastolic 55–92
[2020-11-24] MEDS: METOCLOPRAMIDE HCL 10MG/2ML VIAL IV SCH ×4 (06:53→23:24)
[2020-11-24] MEDS: SODIUM CHLORIDE 0.9% 1,000 ML IV SCH (06:54)
[2020-11-24] MEDS: IPRATROPIUM/ALBUTEROL 0.5-3(2.5)MG/3ML NEB HHN SCH ×2 (08:07→21:18)
[2020-11-24] MEDS: DOCUSATE SODIUM SUGAR FREE 100MG/10ML UDC NG SCH (08:58)
[2020-11-24] MEDS: QUETIAPINE FUMARATE 50MG TABLET PO SCH (08:58)
[2020-11-24] MEDS: FERROUS SULFATE 325MG TABLET PO SCH ×3 (08:58→19:09)
[2020-11-24] MEDS: HYDROCORTISONE 2.5% CREAM 20GM TOP SCH ×2 (09:01→21:59)
[2020-11-24] MEDS ORDERED: CLONIDINE 0.1MG TABLET PO PRN (12:30)
[2020-11-24] MEDS: QUETIAPINE FUMARATE 25MG TABLET PO SCH (17:16)
[2020-11-25] VITALS (12 sets, daily range): BP systolic 89–153; BP diastolic 40–71
[2020-11-25] MEDS: METOCLOPRAMIDE HCL 10MG/2ML VIAL IV SCH ×4 (05:16→23:19)
[2020-11-25] MEDS: QUETIAPINE FUMARATE 50MG TABLET PO SCH (08:22)
[2020-11-25] MEDS: DOCUSATE SODIUM SUGAR FREE 100MG/10ML UDC NG SCH (08:22)
[2020-11-25] MEDS: HYDROCORTISONE 2.5% CREAM 20GM TOP SCH ×2 (08:23→20:42)
[2020-11-25] MEDS: FERROUS SULFATE 325MG TABLET PO SCH ×3 (08:23→17:44)
[2020-11-25] MEDS: IPRATROPIUM/ALBUTEROL 0.5-3(2.5)MG/3ML NEB HHN SCH ×2 (08:29→15:51)
[2020-11-25] MEDS ORDERED: ACETAMINOPHEN 325MG TABLET GT PRN (12:30)
[2020-11-25] MEDS: QUETIAPINE FUMARATE 25MG TABLET PO SCH (17:45)
[2020-11-26] VITALS (12 sets, daily range): BP systolic 84–109; BP diastolic 51–65
[2020-11-26] MEDS: IPRATROPIUM/ALBUTEROL 0.5-3(2.5)MG/3ML NEB HHN SCH ×2 (00:16→10:00)
[2020-11-26] MEDS: METOCLOPRAMIDE HCL 10MG/2ML VIAL IV SCH ×3 (05:54→18:57)
[2020-11-26] MEDS: FERROUS SULFATE 325MG TABLET PO SCH ×3 (08:42→18:57)
[2020-11-26] MEDS: QUETIAPINE FUMARATE 50MG TABLET PO SCH (08:42)
[2020-11-26] MEDS: DOCUSATE SODIUM SUGAR FREE 100MG/10ML UDC NG SCH (08:42)
[2020-11-26] MEDS: HYDROCORTISONE 2.5% CREAM 20GM TOP SCH ×2 (08:44→22:14)
[2020-11-26 12:41] LABS: BG BASE EXCESS 0.1 mmol/L (-2.0-2.0); BG CARBOXYHEMOGLOBIN 0.3 % (0.5-1.5); BG DEOXYHEMOGLOBIN 0.7 % (0.0-5.0); BG FRACTION INSPIRED OXYGEN 40; BG HCO3 ACT 23.1 mmol/L (22.0-26.0); BG OXYGEN SATURATION 99.3 % (92.0-98.5); BG PCO2 31.2 mmHg (35.0-45.0); BG PH 7.488 (7.350-7.450); BG PO2 178.3 mmHg (75.0-100.0); BG SAMPLE SITE LEFT RADIAL; BG TOTAL HEMOGLOBIN 8.6 g/dL (12.0-18.0); BG VENT MODE COOL AEROSOL
[2020-11-26] MEDS: QUETIAPINE FUMARATE 25MG TABLET PO SCH (17:10)
[2020-11-26 17:17] LABS: BASOPHILS % 0.3 % (0.0-2.0); HEMATOCRIT. 25.3 % (42.0-52.0); HEMOGLOBIN. 8.2 g/dL (14.0-18.0); LYMPHOCYTES % 25.2 % (20.0-50.0); MEAN CORPUSCULAR HEMOGLOBIN 25.6 pg (28.0-32.0); MEAN CORPUSCULAR VOLUME 79.1 fL (80.0-94.0); MEAN PLATELET VOLUME 7.7 fl (7.4-10.4); MONOCYTES % 12.8 % (2.0-8.0); NEUTROPHILS % 50.7 % (40.0-76.0); PLATELET 410 x1000/uL (130-400); RED CELL DISTRIBUTION WIDTH 24.1 % (11.6-14.6)
[2020-11-26 17:25] LABS: CHLORIDE 96 mEq/L (98-107)
[2020-11-27] VITALS (14 sets, daily range): BP systolic 94–112; BP diastolic 52–72
[2020-11-27] MEDS: METOCLOPRAMIDE HCL 10MG/2ML VIAL IV SCH ×5 (00:18→23:56)
[2020-11-27] MEDS: QUETIAPINE FUMARATE 50MG TABLET PO SCH (08:30)
[2020-11-27] MEDS: FERROUS SULFATE 325MG TABLET PO SCH ×3 (08:30→18:25)
[2020-11-27] MEDS: DOCUSATE SODIUM SUGAR FREE 100MG/10ML UDC NG SCH (08:30)
[2020-11-27] MEDS: HYDROCORTISONE 2.5% CREAM 20GM TOP SCH ×2 (09:13→23:56)
[2020-11-27] MEDS: QUETIAPINE FUMARATE 25MG TABLET PO SCH (18:22)
[2020-11-28] VITALS (13 sets, daily range): BP systolic 103–129; BP diastolic 50–82
[2020-11-28] MEDS: METOCLOPRAMIDE HCL 10MG/2ML VIAL IV SCH ×3 (05:41→17:01)
[2020-11-28] MEDS: IPRATROPIUM/ALBUTEROL 0.5-3(2.5)MG/3ML NEB HHN PRN ×2 (07:56→15:51)
[2020-11-28] MEDS: DOCUSATE SODIUM SUGAR FREE 100MG/10ML UDC NG SCH (09:00)
[2020-11-28] MEDS: HYDROCORTISONE 2.5% CREAM 20GM TOP SCH ×2 (09:02→22:01)
[2020-11-28] MEDS: FERROUS SULFATE 325MG TABLET PO SCH ×3 (09:02→18:07)
[2020-11-28] MEDS: QUETIAPINE FUMARATE 50MG TABLET PO SCH (09:02)
[2020-11-28] MEDS: QUETIAPINE FUMARATE 25MG TABLET PO SCH (18:09)
[2020-11-29] VITALS (12 sets, daily range): BP systolic 95–126; BP diastolic 41–76
[2020-11-29] MEDS: METOCLOPRAMIDE HCL 10MG/2ML VIAL IV SCH ×4 (00:55→18:00)
[2020-11-29] MEDS: QUETIAPINE FUMARATE 50MG TABLET PO SCH (08:59)
[2020-11-29] MEDS: DOCUSATE SODIUM SUGAR FREE 100MG/10ML UDC NG SCH (08:59)
[2020-11-29] MEDS: HYDROCORTISONE 2.5% CREAM 20GM TOP SCH ×2 (09:01→21:27)
[2020-11-29] MEDS: FERROUS SULFATE 325MG TABLET PO SCH ×3 (09:18→18:30)
[2020-11-29] MEDS: QUETIAPINE FUMARATE 25MG TABLET PO SCH (18:28)
[2020-11-29] MEDS: IPRATROPIUM/ALBUTEROL 0.5-3(2.5)MG/3ML NEB HHN PRN (21:24)
[2020-11-30] VITALS (9 sets, daily range): BP systolic 96–114; BP diastolic 54–63
[2020-11-30] MEDS: METOCLOPRAMIDE HCL 10MG/2ML VIAL IV SCH ×5 (01:02→23:32)
[2020-11-30] MEDS: DOCUSATE SODIUM SUGAR FREE 100MG/10ML UDC NG SCH (08:46)
[2020-11-30] MEDS: QUETIAPINE FUMARATE 50MG TABLET PO SCH (08:46)
[2020-11-30] MEDS: HYDROCORTISONE 2.5% CREAM 20GM TOP SCH (08:51)
[2020-11-30] MEDS: FERROUS SULFATE 325MG TABLET PO SCH ×3 (09:23→19:08)
[2020-11-30] MEDS: QUETIAPINE FUMARATE 25MG TABLET PO SCH (19:09)
[2020-11-30] MEDS: VITAMINS A AND D OINT TUBE TOP SCH (21:13)
[2020-12-01] VITALS (12 sets, daily range): BP systolic 90–110; BP diastolic 52–66
[2020-12-01] MEDS: METOCLOPRAMIDE HCL 10MG/2ML VIAL IV SCH ×3 (06:35→17:37)
[2020-12-01] MEDS: DOCUSATE SODIUM SUGAR FREE 100MG/10ML UDC NG SCH (09:18)
[2020-12-01] MEDS: QUETIAPINE FUMARATE 50MG TABLET PO SCH (09:18)
[2020-12-01] MEDS: VITAMINS A AND D OINT TUBE TOP SCH ×2 (09:18→21:27)
[2020-12-01 12:59] LABS: BG BASE EXCESS 1.2 mmol/L (-2.0-2.0); BG CARBOXYHEMOGLOBIN 1.1 % (0.5-1.5); BG DEOXYHEMOGLOBIN 4.5 % (0.0-5.0); BG FRACTION INSPIRED OXYGEN 60; BG HCO3 ACT 23.8 mmol/L (22.0-26.0); BG METHEMOGLOBIN 0.3 % (0.0-1.5); BG OXYGEN SATURATION 95.4 % (92.0-98.5); BG OXYHEMOGLOBIN 94.1 % (94.0-97.0); BG PH 7.517 (7.350-7.450); BG PO2 73.9 mmHg (75.0-100.0); BG SAMPLE SITE RIGHT RADIAL; BG VENT MODE COOL AEROSOL
[2020-12-01] MEDS: QUETIAPINE FUMARATE 25MG TABLET PO SCH (17:37)
[2020-12-02] VITALS (12 sets, daily range): BP systolic 93–177; BP diastolic 48–72
[2020-12-02] MEDS: METOCLOPRAMIDE HCL 10MG/2ML VIAL IV SCH ×4 (00:16→17:14)
[2020-12-02] MEDS: VITAMINS A AND D OINT TUBE TOP SCH ×2 (08:16→21:15)
[2020-12-02] MEDS: QUETIAPINE FUMARATE 50MG TABLET PO SCH (08:17)
[2020-12-02] MEDS: DOCUSATE SODIUM SUGAR FREE 100MG/10ML UDC NG SCH (08:17)
[2020-12-02] MEDS: QUETIAPINE FUMARATE 25MG TABLET PO SCH (17:14)
[2020-12-03] VITALS (13 sets, daily range): BP systolic 75–110; BP diastolic 46–68
[2020-12-03] MEDS: METOCLOPRAMIDE HCL 10MG/2ML VIAL IV SCH ×3 (01:09→12:53)
[2020-12-03 06:58] LABS: BASOPHILS % 0.2 % (0.0-2.0); EOSINOPHILS % 6.2 % (0.0-5.0); HEMOGLOBIN. 7.8 g/dL (14.0-18.0); LYMPHOCYTES % 25.6 % (20.0-50.0); MEAN CORPUSCULAR HEMOGLOBIN 26.3 pg (28.0-32.0); MEAN CORPUSCULAR VOLUME 80.8 fL (80.0-94.0); MEAN PLATELET VOLUME 7.7 fl (7.4-10.4); MONOCYTES % 8.7 % (2.0-8.0); NEUTROPHILS % 59.3 % (40.0-76.0); PLATELET 476 x1000/uL (130-400); RED BLOOD CELL COUNT 2.97 mill/uL (4.7-6.1); RED CELL DISTRIBUTION WIDTH 23.3 % (11.6-14.6)
[2020-12-03 07:16] LABS: CHLORIDE 106 mEq/L (98-107)
[2020-12-03] MEDS: QUETIAPINE FUMARATE 50MG TABLET PO SCH (10:12)
[2020-12-03] MEDS: DOCUSATE SODIUM SUGAR FREE 100MG/10ML UDC NG SCH (10:12)
[2020-12-03] MEDS: VITAMINS A AND D OINT TUBE TOP SCH ×2 (10:12→20:21)
[2020-12-03] MEDS: QUETIAPINE FUMARATE 25MG TABLET PO SCH (17:56)
[2020-12-03] MEDS ORDERED: ACETAMINOPHEN 650MG/20.3ML UDC GT PRN (21:49)
[2020-12-04] VITALS (12 sets, daily range): BP systolic 93–107; BP diastolic 54–80
[2020-12-04 07:40] LABS: BASOPHILS % 0.4 % (0.0-2.0); EOSINOPHILS % 8.8 % (0.0-5.0); HEMATOCRIT. 27.1 % (42.0-52.0); HEMOGLOBIN. 8.8 g/dL (14.0-18.0); MEAN CORPUSCULAR HEMOGLOBIN 26.3 pg (28.0-32.0); MEAN CORPUSCULAR VOLUME 81.4 fL (80.0-94.0); MONOCYTES % 8.5 % (2.0-8.0); NEUTROPHILS % 59.3 % (40.0-76.0); PLATELET 490 x1000/uL (130-400); RED BLOOD CELL COUNT 3.33 mill/uL (4.7-6.1); RED CELL DISTRIBUTION WIDTH 23.7 % (11.6-14.6)
[2020-12-04 08:00] LABS: CHLORIDE 106 mEq/L (98-107)
[2020-12-04] MEDS: DOCUSATE SODIUM SUGAR FREE 100MG/10ML UDC NG SCH (09:42)
[2020-12-04] MEDS: QUETIAPINE FUMARATE 50MG TABLET PO SCH (09:42)
[2020-12-04] MEDS: VITAMINS A AND D OINT TUBE TOP SCH ×2 (09:43→21:14)
[2020-12-04] MEDS: QUETIAPINE FUMARATE 25MG TABLET PO SCH (18:03)
[2020-12-05] VITALS (13 sets, daily range): BP systolic 93–118; BP diastolic 52–63
[2020-12-05 06:52] LABS: BASOPHILS % 0.3 % (0.0-2.0); EOSINOPHILS % 8.6 % (0.0-5.0); HEMOGLOBIN. 8.5 g/dL (14.0-18.0); LYMPHOCYTES % 22.4 % (20.0-50.0); MEAN CORPUSCULAR HEMOGLOBIN 26.5 pg (28.0-32.0); MEAN CORPUSCULAR VOLUME 81.4 fL (80.0-94.0); MONOCYTES % 9.8 % (2.0-8.0); NEUTROPHILS % 58.9 % (40.0-76.0); PLATELET 468 x1000/uL (130-400); RED BLOOD CELL COUNT 3.19 mill/uL (4.7-6.1)
[2020-12-05 06:56] LABS: CHLORIDE 104 mEq/L (98-107)
[2020-12-05] MEDS: QUETIAPINE FUMARATE 50MG TABLET PO SCH (08:18)
[2020-12-05] MEDS: DOCUSATE SODIUM SUGAR FREE 100MG/10ML UDC NG SCH (08:18)
[2020-12-05] MEDS: VITAMINS A AND D OINT TUBE TOP SCH ×2 (08:19→20:33)
[2020-12-05] MEDS: QUETIAPINE FUMARATE 25MG TABLET PO SCH (18:13)
[2020-12-06] VITALS (7 sets, daily range): BP systolic 92–127; BP diastolic 48–73
[2020-12-06 08:24] LABS: BASOPHILS % 0.3 % (0.0-2.0); EOSINOPHILS % 8.8 % (0.0-5.0); HEMATOCRIT. 26.4 % (42.0-52.0); HEMOGLOBIN. 8.4 g/dL (14.0-18.0); LYMPHOCYTES % 34.7 % (20.0-50.0); MEAN CORPUSCULAR VOLUME 81.4 fL (80.0-94.0); MEAN PLATELET VOLUME 8.1 fl (7.4-10.4); MONOCYTES % 12.5 % (2.0-8.0); NEUTROPHILS % 43.7 % (40.0-76.0); PLATELET 482 x1000/uL (130-400); RED BLOOD CELL COUNT 3.24 mill/uL (4.7-6.1); RED CELL DISTRIBUTION WIDTH 22.9 % (11.6-14.6)
[2020-12-06 08:43] LABS: CHLORIDE 104 mEq/L (98-107)
[2020-12-06] MEDS: DOCUSATE SODIUM SUGAR FREE 100MG/10ML UDC NG SCH (09:05)
[2020-12-06] MEDS: QUETIAPINE FUMARATE 50MG TABLET PO SCH (09:05)
[2020-12-06] MEDS: VITAMINS A AND D OINT TUBE TOP SCH ×2 (09:06→22:15)
[2020-12-06] MEDS: QUETIAPINE FUMARATE 25MG TABLET PO SCH (17:46)
[2020-12-07] VITALS: BP 98/58
[2020-12-07 04:00] VITALS: BP 103/68
[2020-12-07 08:00] VITALS: BP 96/57
[2020-12-07 08:25] LABS: BASOPHILS % 0.2 % (0.0-2.0); EOSINOPHILS % 7.7 % (0.0-5.0); HEMATOCRIT. 26.5 % (42.0-52.0); HEMOGLOBIN. 8.6 g/dL (14.0-18.0); LYMPHOCYTES % 30.5 % (20.0-50.0); MEAN CORPUSCULAR VOLUME 80.4 fL (80.0-94.0); MEAN PLATELET VOLUME 8.1 fl (7.4-10.4); MONOCYTES % 10.3 % (2.0-8.0); NEUTROPHILS % 51.3 % (40.0-76.0); PLATELET 461 x1000/uL (130-400); RED BLOOD CELL COUNT 3.29 mill/uL (4.7-6.1); RED CELL DISTRIBUTION WIDTH 23.4 % (11.6-14.6)
[2020-12-07 08:37] LABS: CHLORIDE 107 mEq/L (98-107)
[2020-12-07] MEDS: DOCUSATE SODIUM SUGAR FREE 100MG/10ML UDC NG SCH (09:42)
[2020-12-07] MEDS: QUETIAPINE FUMARATE 50MG TABLET PO SCH (09:42)
[2020-12-07] MEDS: VITAMINS A AND D OINT TUBE TOP SCH ×2 (09:43→21:11)
[2020-12-07 12:00] VITALS: BP 100/53
[2020-12-07 16:00] VITALS: BP 101/53
[2020-12-07] MEDS: QUETIAPINE FUMARATE 25MG TABLET PO SCH (17:56)
[2020-12-08 03:59] VITALS: BP 109/47
[2020-12-08 07:26] LABS: CHLORIDE 108 mEq/L (98-107)
[2020-12-08 07:42] LABS: BASOPHILS % 0.2 % (0.0-2.0); EOSINOPHILS % 4.8 % (0.0-5.0); HEMATOCRIT. 26.9 % (42.0-52.0); HEMOGLOBIN. 8.8 g/dL (14.0-18.0); LYMPHOCYTES % 34.9 % (20.0-50.0); MEAN CORPUSCULAR HEMOGLOBIN 26.5 pg (28.0-32.0); MEAN CORPUSCULAR VOLUME 80.9 fL (80.0-94.0); MEAN PLATELET VOLUME 8.1 fl (7.4-10.4); MONOCYTES % 10.1 % (2.0-8.0); PLATELET 470 x1000/uL (130-400); RED BLOOD CELL COUNT 3.33 mill/uL (4.7-6.1); RED CELL DISTRIBUTION WIDTH 22.3 % (11.6-14.6)
[2020-12-08 08:00] VITALS: BP 108/62
[2020-12-08] MEDS: DOCUSATE SODIUM SUGAR FREE 100MG/10ML UDC NG SCH (08:47)
[2020-12-08] MEDS: QUETIAPINE FUMARATE 50MG TABLET PO SCH (08:48)
[2020-12-08] MEDS: VITAMINS A AND D OINT TUBE TOP SCH ×2 (08:54→20:32)
[2020-12-08 12:00] VITALS: BP 118/71
[2020-12-08 15:55] VITALS: BP 107/66
[2020-12-08] MEDS: QUETIAPINE FUMARATE 25MG TABLET PO SCH (16:45)
[2020-12-09 04:00] VITALS: BP 95/54
[2020-12-09 08:00] VITALS: BP 119/64
[2020-12-09] MEDS: QUETIAPINE FUMARATE 50MG TABLET PO SCH (09:27)
[2020-12-09] MEDS: VITAMINS A AND D OINT TUBE TOP SCH ×2 (09:28→21:02)
[2020-12-09] MEDS: DOCUSATE SODIUM SUGAR FREE 100MG/10ML UDC NG SCH (09:37)
[2020-12-09 12:00] VITALS: BP 140/80
[2020-12-09] MEDS: QUETIAPINE FUMARATE 25MG TABLET PO SCH (17:06)
[2020-12-09 20:00] VITALS: BP 94/62
[2020-12-10 08:00] VITALS: BP 99/68
[2020-12-10 08:23] LABS: BASOPHILS % 0.2 % (0.0-2.0); EOSINOPHILS % 4.4 % (0.0-5.0); HEMATOCRIT. 29.4 % (42.0-52.0); HEMOGLOBIN. 9.5 g/dL (14.0-18.0); LYMPHOCYTES % 26.4 % (20.0-50.0); MEAN CORPUSCULAR HEMOGLOBIN 26.2 pg (28.0-32.0); MEAN CORPUSCULAR VOLUME 80.9 fL (80.0-94.0); MONOCYTES % 9.2 % (2.0-8.0); NEUTROPHILS % 59.8 % (40.0-76.0); PLATELET 512 x1000/uL (130-400); RED BLOOD CELL COUNT 3.63 mill/uL (4.7-6.1); RED CELL DISTRIBUTION WIDTH 21.9 % (11.6-14.6)
[2020-12-10 08:41] LABS: CHLORIDE 111 mEq/L (98-107)
[2020-12-10] MEDS: QUETIAPINE FUMARATE 50MG TABLET PO SCH (09:45)
[2020-12-10] MEDS: DOCUSATE SODIUM SUGAR FREE 100MG/10ML UDC NG SCH (09:45)
[2020-12-10] MEDS: VITAMINS A AND D OINT TUBE TOP SCH ×2 (09:46→22:13)
[2020-12-10] MEDS: QUETIAPINE FUMARATE 25MG TABLET PO SCH (18:54)
[2020-12-10 20:00] VITALS: BP 103/64
[2020-12-11 07:27] LABS: BASOPHILS % 0.1 % (0.0-2.0); EOSINOPHILS % 4.4 % (0.0-5.0); HEMATOCRIT. 29.7 % (42.0-52.0); HEMOGLOBIN. 9.5 g/dL (14.0-18.0); LYMPHOCYTES % 30.6 % (20.0-50.0); MEAN CORPUSCULAR HEMOGLOBIN 25.9 pg (28.0-32.0); MEAN CORPUSCULAR VOLUME 81.3 fL (80.0-94.0); MEAN PLATELET VOLUME 7.9 fl (7.4-10.4); NEUTROPHILS % 55.9 % (40.0-76.0); PLATELET 467 x1000/uL (130-400); RED BLOOD CELL COUNT 3.66 mill/uL (4.7-6.1); RED CELL DISTRIBUTION WIDTH 21.7 % (11.6-14.6)
[2020-12-11 07:54] LABS: CHLORIDE 113 mEq/L (98-107)
[2020-12-11 08:00] VITALS: BP 102/64
[2020-12-11] MEDS ORDERED: LIDOCAINE HCL 1% 20ML VIAL (Pyxis) INJ ONE (08:13)
[2020-12-11] MEDS: QUETIAPINE FUMARATE 50MG TABLET PO SCH ×2 (09:53→18:15)
[2020-12-11] MEDS: DOCUSATE SODIUM SUGAR FREE 100MG/10ML UDC NG SCH (09:53)
[2020-12-11] MEDS: VITAMINS A AND D OINT TUBE TOP SCH ×3 (10:14→23:06)
[2020-12-11 12:00] VITALS: BP 100/66
[2020-12-11 16:00] VITALS: BP 102/52
[2020-12-11 20:00] VITALS: BP 102/68
[2020-12-12 08:00] VITALS: BP 100/56
[2020-12-12] MEDS: QUETIAPINE FUMARATE 50MG TABLET PO SCH ×2 (09:47→17:35)
[2020-12-12] MEDS: DOCUSATE SODIUM SUGAR FREE 100MG/10ML UDC NG SCH (09:47)
[2020-12-12] MEDS: VITAMINS A AND D OINT TUBE TOP SCH ×2 (09:48→21:08)
[2020-12-12 12:00] VITALS: BP 90/63
[2020-12-12 16:00] VITALS: BP 105/65
[2020-12-12 20:00] VITALS: BP 134/67
[2020-12-13 08:00] VITALS: BP 96/59
[2020-12-13] MEDS: QUETIAPINE FUMARATE 50MG TABLET PO SCH ×2 (10:19→17:05)
[2020-12-13] MEDS: DOCUSATE SODIUM SUGAR FREE 100MG/10ML UDC NG SCH (10:19)
[2020-12-13] MEDS: VITAMINS A AND D OINT TUBE TOP SCH ×2 (10:23→20:31)
[2020-12-13 12:00] VITALS: BP 107/69
[2020-12-13 20:00] VITALS: BP 104/65
[2020-12-14 08:00] VITALS: BP 110/62
[2020-12-14] MEDS: DOCUSATE SODIUM SUGAR FREE 100MG/10ML UDC NG SCH (10:44)
[2020-12-14] MEDS: VITAMINS A AND D OINT TUBE TOP SCH ×2 (10:45→21:30)
[2020-12-14 12:00] VITALS: BP 97/57
[2020-12-14 16:00] VITALS: BP 101/62
[2020-12-14 20:00] VITALS: BP 98/62
[2020-12-14] MEDS: QUETIAPINE FUMARATE 50MG TABLET PO SCH (21:30)
[2020-12-15] VITALS: BP 98/58
[2020-12-15 04:00] VITALS: BP 90/59
[2020-12-15 08:00] VITALS: BP 80/40
[2020-12-15] MEDS: VITAMINS A AND D OINT TUBE TOP SCH ×2 (10:15→20:30)
[2020-12-15] MEDS: DOCUSATE SODIUM SUGAR FREE 100MG/10ML UDC NG SCH (10:15)
[2020-12-15] MEDS: QUETIAPINE FUMARATE 50MG TABLET PO SCH ×2 (10:15→23:00)
[2020-12-15 12:00] VITALS: BP 87/58
[2020-12-15 16:00] VITALS: BP 98/55
[2020-12-15 20:00] VITALS: BP 118/64
[2020-12-16] VITALS: BP 114/71
[2020-12-16 04:00] VITALS: BP 105/56
[2020-12-16 08:00] VITALS: BP_SYST 100; BP_SYST 137; BP_DIAS 121; BP_DIAS 61
[2020-12-16] MEDS: VITAMINS A AND D OINT TUBE TOP SCH ×2 (09:17→21:44)
[2020-12-16] MEDS: DOCUSATE SODIUM SUGAR FREE 100MG/10ML UDC NG SCH (09:17)
[2020-12-16] MEDS: QUETIAPINE FUMARATE 50MG TABLET PO SCH ×2 (09:17→21:38)
[2020-12-16 12:00] VITALS: BP 92/55
[2020-12-16 16:00] VITALS: BP 101/56
[2020-12-16 20:00] VITALS: BP 111/61
[2020-12-17 05:21] VITALS: BP 98/58
[2020-12-17] MEDS: DOCUSATE SODIUM SUGAR FREE 100MG/10ML UDC NG SCH (09:37)
[2020-12-17] MEDS: QUETIAPINE FUMARATE 50MG TABLET PO SCH ×2 (09:37→20:14)
[2020-12-17] MEDS: VITAMINS A AND D OINT TUBE TOP SCH ×2 (09:38→21:00)
[2020-12-17 20:00] VITALS: BP 102/52
[2020-12-18 08:00] VITALS: BP 110/61
[2020-12-18] MEDS: DOCUSATE SODIUM SUGAR FREE 100MG/10ML UDC NG SCH (09:18)
[2020-12-18] MEDS: QUETIAPINE FUMARATE 50MG TABLET PO SCH ×2 (09:18→22:04)
[2020-12-18] MEDS: VITAMINS A AND D OINT TUBE TOP SCH ×2 (09:19→22:04)
[2020-12-18 12:00] VITALS: BP 101/60
[2020-12-18 16:00] VITALS: BP 107/56
[2020-12-18 20:00] VITALS: BP 96/52
[2020-12-19] VITALS: BP 95/54
[2020-12-19 04:00] VITALS: BP 98/57
[2020-12-19 08:00] VITALS: BP 91/60
[2020-12-19] MEDS: QUETIAPINE FUMARATE 50MG TABLET PO SCH ×2 (08:28→20:09)
[2020-12-19] MEDS: VITAMINS A AND D OINT TUBE TOP SCH ×2 (08:41→20:09)
[2020-12-19 12:00] VITALS: BP 92/57
[2020-12-19 14:56] LABS: HEMATOCRIT 29.9 % (42.0-52.0); HEMOGLOBIN 9.8 g/dL (14.0-18.0)
[2020-12-19 16:00] VITALS: BP 106/58
[2020-12-19] MEDS: DOCUSATE SODIUM 100MG CAPSULE PO SCH (17:53)
[2020-12-19 20:00] VITALS: BP 102/51
[2020-12-19] MEDS: PANTOPRAZOLE SODIUM 40 MG/VIAL IV SCH (20:09)
[2020-12-19] MEDS: LACTULOSE 20G/30ML UDC PO SCH (21:00)
[2020-12-19] MEDS ORDERED: SENNOSIDES/DOCUSATE SOD 8.6/50MG TABLET PO PRN (21:00)
[2020-12-20] VITALS: BP 89/54
[2020-12-20 04:00] VITALS: BP 89/47
[2020-12-20 07:30] LABS: BASOPHILS % 0.1 % (0.0-2.0); EOSINOPHILS % 3.3 % (0.0-5.0); HEMATOCRIT. 30.1 % (42.0-52.0); HEMOGLOBIN. 9.9 g/dL (14.0-18.0); MEAN CORPUSCULAR VOLUME 82.6 fL (80.0-94.0); MEAN PLATELET VOLUME 9.1 fl (7.4-10.4); MONOCYTES % 10.9 % (2.0-8.0); NEUTROPHILS % 45.7 % (40.0-76.0); PLATELET 267 x1000/uL (130-400); RED BLOOD CELL COUNT 3.65 mill/uL (4.7-6.1); RED CELL DISTRIBUTION WIDTH 21.9 % (11.6-14.6)
[2020-12-20 07:36] LABS: CHLORIDE 100 mEq/L (98-107)
[2020-12-20 08:00] VITALS: BP 103/61
[2020-12-20] MEDS: POLYETHYLENE GLYCOL 3350 (17GM) 1 DOSE PACK PO SCH (09:17)
[2020-12-20] MEDS: VITAMINS A AND D OINT TUBE TOP SCH ×2 (09:17→21:01)
[2020-12-20] MEDS: QUETIAPINE FUMARATE 50MG TABLET PO SCH ×2 (09:17→20:52)
[2020-12-20] MEDS: DOCUSATE SODIUM 100MG CAPSULE PO SCH ×2 (09:17→17:00)
[2020-12-20] MEDS: PANTOPRAZOLE SODIUM 40 MG/VIAL IV SCH ×2 (09:17→20:52)
[2020-12-20 12:00] VITALS: BP 98/62
[2020-12-20 16:00] VITALS: BP 85/54
[2020-12-20 20:00] VITALS: BP 99/58
[2020-12-20] MEDS: LACTULOSE 20G/30ML UDC PO SCH (21:00)
[2020-12-21] VITALS: BP 91/53
[2020-12-21 04:00] VITALS: BP 91/60
[2020-12-21 08:00] VITALS: BP 101/64
[2020-12-21 08:10] LABS: BASOPHILS % 0.1 % (0.0-2.0); HEMATOCRIT. 29.6 % (42.0-52.0); HEMOGLOBIN. 9.7 g/dL (14.0-18.0); LYMPHOCYTES % 37.8 % (20.0-50.0); MEAN CORPUSCULAR HEMOGLOBIN 27.3 pg (28.0-32.0); MEAN CORPUSCULAR VOLUME 82.9 fL (80.0-94.0); MEAN PLATELET VOLUME 8.9 fl (7.4-10.4); MONOCYTES % 13.6 % (2.0-8.0); NEUTROPHILS % 45.5 % (40.0-76.0); PLATELET 290 x1000/uL (130-400); RED BLOOD CELL COUNT 3.57 mill/uL (4.7-6.1); RED CELL DISTRIBUTION WIDTH 22.1 % (11.6-14.6)
[2020-12-21 12:00] VITALS: BP 109/66
[2020-12-21] MEDS: QUETIAPINE FUMARATE 50MG TABLET PO SCH ×2 (12:56→20:37)
[2020-12-21] MEDS: DOCUSATE SODIUM 100MG CAPSULE PO SCH ×2 (12:56→17:00)
[2020-12-21] MEDS: POLYETHYLENE GLYCOL 3350 (17GM) 1 DOSE PACK PO SCH (12:57)
[2020-12-21] MEDS: PANTOPRAZOLE SODIUM 40 MG/VIAL IV SCH ×2 (12:57→20:37)
[2020-12-21] MEDS: VITAMINS A AND D OINT TUBE TOP SCH ×2 (12:58→20:38)
[2020-12-21] MEDS: LACTULOSE 20G/30ML UDC PO SCH (21:00)
[2020-12-21 21:47] VITALS: BP 95/63
[2020-12-22] VITALS: BP 99/59
[2020-12-22 04:00] VITALS: BP 93/56
[2020-12-22 08:00] VITALS: BP 105/63
[2020-12-22] MEDS: VITAMINS A AND D OINT TUBE TOP SCH ×2 (09:00→21:36)
[2020-12-22] MEDS: POLYETHYLENE GLYCOL 3350 (17GM) 1 DOSE PACK PO SCH (09:43)
[2020-12-22] MEDS: PANTOPRAZOLE SODIUM 40 MG/VIAL IV SCH ×2 (09:44→21:35)
[2020-12-22] MEDS: DOCUSATE SODIUM 100MG CAPSULE PO SCH ×2 (09:44→17:00)
[2020-12-22] MEDS: QUETIAPINE FUMARATE 50MG TABLET PO SCH ×2 (09:44→21:35)
[2020-12-22 12:00] VITALS: BP 95/58
[2020-12-22 16:00] VITALS: BP 94/55
[2020-12-22 20:00] VITALS: BP 96/59
[2020-12-22] MEDS: LACTULOSE 20G/30ML UDC PO SCH (21:00)
[2020-12-23] VITALS (7 sets, daily range): BP systolic 82–102; BP diastolic 50–60
[2020-12-23] MEDS: DOCUSATE SODIUM 100MG CAPSULE PO SCH ×2 (09:00→17:00)
[2020-12-23] MEDS: POLYETHYLENE GLYCOL 3350 (17GM) 1 DOSE PACK PO SCH (09:00)
[2020-12-23] MEDS: PANTOPRAZOLE SODIUM 40 MG/VIAL IV SCH ×2 (09:12→21:00)
[2020-12-23] MEDS: QUETIAPINE FUMARATE 50MG TABLET PO SCH ×2 (09:12→22:10)
[2020-12-23] MEDS: VITAMINS A AND D OINT TUBE TOP SCH ×2 (09:49→21:00)
[2020-12-23] MEDS: LACTULOSE 20G/30ML UDC PO SCH (21:00)
[2020-12-24] VITALS: BP 93/55
[2020-12-24 04:00] VITALS: BP 105/64
[2020-12-24 08:34] VITALS: BP 90/47
[2020-12-24] MEDS: QUETIAPINE FUMARATE 50MG TABLET PO SCH ×2 (09:37→21:04)
[2020-12-24] MEDS: PANTOPRAZOLE SODIUM 40 MG/VIAL IV SCH ×2 (09:37→21:04)
[2020-12-24] MEDS: DOCUSATE SODIUM 100MG CAPSULE PO SCH ×2 (09:37→17:15)
[2020-12-24] MEDS: POLYETHYLENE GLYCOL 3350 (17GM) 1 DOSE PACK PO SCH (09:37)
[2020-12-24] MEDS: VITAMINS A AND D OINT TUBE TOP SCH ×2 (09:38→21:00)
[2020-12-24] MEDS: MIDODRINE HCL 2.5MG TABLET PO SCH ×2 (12:53→17:15)
[2020-12-24 16:27] VITALS: BP 88/48
[2020-12-24 16:29] VITALS: BP 106/57
[2020-12-24 20:00] VITALS: BP 105/63
[2020-12-24] MEDS: LACTULOSE 20G/30ML UDC PO SCH (21:04)
[2020-12-25] VITALS: BP 109/63
[2020-12-25 04:00] VITALS: BP 96/61
[2020-12-25 07:29] LABS: EOSINOPHILS % 2.7 % (0.0-5.0); HEMATOCRIT. 30.9 % (42.0-52.0); HEMOGLOBIN. 10.3 g/dL (14.0-18.0); LYMPHOCYTES % 36.3 % (20.0-50.0); MEAN CORPUSCULAR VOLUME 83.9 fL (80.0-94.0); MEAN PLATELET VOLUME 8.8 fl (7.4-10.4); MONOCYTES % 11.8 % (2.0-8.0); NEUTROPHILS % 49.2 % (40.0-76.0); PLATELET 275 x1000/uL (130-400); RED BLOOD CELL COUNT 3.68 mill/uL (4.7-6.1); RED CELL DISTRIBUTION WIDTH 20.7 % (11.6-14.6)
[2020-12-25 07:49] LABS: CHLORIDE 98 mEq/L (98-107)
[2020-12-25 08:00] VITALS: BP 98/57
[2020-12-25] MEDS: POLYETHYLENE GLYCOL 3350 (17GM) 1 DOSE PACK PO SCH (09:00)
[2020-12-25] MEDS: MIDODRINE HCL 2.5MG TABLET PO SCH ×3 (10:01→16:59)
[2020-12-25] MEDS: DOCUSATE SODIUM 100MG CAPSULE PO SCH ×2 (10:01→16:58)
[2020-12-25] MEDS: QUETIAPINE FUMARATE 50MG TABLET PO SCH ×2 (10:01→22:40)
[2020-12-25] MEDS: PANTOPRAZOLE SODIUM 40 MG/VIAL IV SCH ×2 (10:01→21:00)
[2020-12-25] MEDS: VITAMINS A AND D OINT TUBE TOP SCH ×2 (10:09→22:39)
[2020-12-25 12:00] VITALS: BP 100/58
[2020-12-25] MEDS ORDERED: SODIUM CHLORIDE 0.9% 500 ML IV ONE (14:15)
[2020-12-25 20:00] VITALS: BP 108/63
[2020-12-25] MEDS: LACTULOSE 20G/30ML UDC PO SCH (22:40)
[2020-12-26] VITALS: BP 92/41
[2020-12-26 04:00] VITALS: BP 103/56
[2020-12-26 07:13] LABS: BASOPHILS % 0.1 % (0.0-2.0); EOSINOPHILS % 1.5 % (0.0-5.0); HEMATOCRIT. 29.3 % (42.0-52.0); HEMOGLOBIN. 9.8 g/dL (14.0-18.0); LYMPHOCYTES % 32.3 % (20.0-50.0); MEAN CORPUSCULAR HEMOGLOBIN 27.8 pg (28.0-32.0); MEAN CORPUSCULAR VOLUME 83.4 fL (80.0-94.0); MEAN PLATELET VOLUME 8.6 fl (7.4-10.4); MONOCYTES % 9.8 % (2.0-8.0); NEUTROPHILS % 56.3 % (40.0-76.0); PLATELET 281 x1000/uL (130-400); RED BLOOD CELL COUNT 3.51 mill/uL (4.7-6.1); RED CELL DISTRIBUTION WIDTH 21.2 % (11.6-14.6)
[2020-12-26 07:24] LABS: CHLORIDE 99 mEq/L (98-107)
[2020-12-26 08:00] VITALS: BP 95/45
[2020-12-26] MEDS: POLYETHYLENE GLYCOL 3350 (17GM) 1 DOSE PACK PO SCH (09:00)
[2020-12-26] MEDS: PANTOPRAZOLE SODIUM 40 MG/VIAL IV SCH (09:00)
[2020-12-26] MEDS: QUETIAPINE FUMARATE 50MG TABLET PO SCH ×2 (09:06→21:16)
[2020-12-26] MEDS: DOCUSATE SODIUM 100MG CAPSULE PO SCH ×2 (09:06→17:00)
[2020-12-26] MEDS: VITAMINS A AND D OINT TUBE TOP SCH ×2 (09:06→21:16)
[2020-12-26] MEDS: MIDODRINE HCL 2.5MG TABLET PO SCH ×3 (09:06→17:38)
[2020-12-26] MEDS ORDERED: ACETAMINOPHEN 650MG/20.3ML UDC PO PRN (11:45)
[2020-12-26 12:00] VITALS: BP_SYST 102; BP_SYST 93; BP_DIAS 51; BP_DIAS 53
[2020-12-26 16:00] VITALS: BP 102/53
[2020-12-26] MEDS ORDERED: SODIUM CHLORIDE 0.9% 1,000 ML IV ONE (16:30)
[2020-12-26 20:00] VITALS: BP 105/61
[2020-12-26] MEDS: LACTULOSE 20G/30ML UDC PO SCH (21:15)
[2020-12-27] VITALS: BP 91/47
[2020-12-27 04:00] VITALS: BP 74/39
[2020-12-27] MEDS: SODIUM CHLORIDE 0.9% 1,000 ML IV SCH ×2 (04:02→17:38)
[2020-12-27] MEDS: OMEPRAZOLE 20MG CAPSULE EXTENDED RELEASE PO SCH (06:16)
[2020-12-27 07:50] LABS: BASOPHILS % 0.2 % (0.0-2.0); EOSINOPHILS % 2.5 % (0.0-5.0); HEMATOCRIT. 28.2 % (42.0-52.0); HEMOGLOBIN. 9.2 g/dL (14.0-18.0); MEAN CORPUSCULAR HEMOGLOBIN 27.4 pg (28.0-32.0); MONOCYTES % 12.6 % (2.0-8.0); NEUTROPHILS % 48.7 % (40.0-76.0); PLATELET 262 x1000/uL (130-400); RED BLOOD CELL COUNT 3.35 mill/uL (4.7-6.1); RED CELL DISTRIBUTION WIDTH 20.3 % (11.6-14.6)
[2020-12-27 08:00] VITALS: BP 94/56
[2020-12-27 08:24] LABS: CHLORIDE 102 mEq/L (98-107)
[2020-12-27] MEDS: ZINC SULFATE 220 MG ( 50 ) CAPSULE PO SCH (09:15)
[2020-12-27] MEDS: QUETIAPINE FUMARATE 50MG TABLET PO SCH ×2 (09:15→21:01)
[2020-12-27] MEDS: POLYETHYLENE GLYCOL 3350 (17GM) 1 DOSE PACK PO SCH (09:15)
[2020-12-27] MEDS: MIDODRINE HCL 2.5MG TABLET PO SCH ×3 (09:15→17:38)
[2020-12-27] MEDS: DOCUSATE SODIUM 100MG CAPSULE PO SCH ×2 (09:15→17:38)
[2020-12-27] MEDS: VITAMINS A AND D OINT TUBE TOP SCH ×2 (09:17→21:02)
[2020-12-27] MEDS: ASCORBIC ACID 500 MG TABLET PO SCH (09:17)
[2020-12-27 16:00] VITALS: BP 97/61
[2020-12-27 20:00] VITALS: BP 96/53
[2020-12-27] MEDS: LACTULOSE 20G/30ML UDC PO SCH (20:58)
[2020-12-28] VITALS: BP 96/42
[2020-12-28 04:00] VITALS: BP 93/52
[2020-12-28] MEDS: SODIUM CHLORIDE 0.9% 1,000 ML IV SCH ×2 (06:45→20:51)
[2020-12-28] MEDS: OMEPRAZOLE 20MG CAPSULE EXTENDED RELEASE PO SCH (07:50)
[2020-12-28 08:00] VITALS: BP 99/61
[2020-12-28] MEDS: POLYETHYLENE GLYCOL 3350 (17GM) 1 DOSE PACK PO SCH (09:00)
[2020-12-28] MEDS: ZINC SULFATE 220 MG ( 50 ) CAPSULE PO SCH (09:20)
[2020-12-28] MEDS: ASCORBIC ACID 500 MG TABLET PO SCH (09:21)
[2020-12-28] MEDS: DOCUSATE SODIUM 100MG CAPSULE PO SCH ×2 (09:22→18:04)
[2020-12-28] MEDS: MIDODRINE HCL 2.5MG TABLET PO SCH ×3 (09:22→18:04)
[2020-12-28] MEDS: QUETIAPINE FUMARATE 50MG TABLET PO SCH ×2 (09:22→20:51)
[2020-12-28] MEDS: VITAMINS A AND D OINT TUBE TOP SCH ×2 (09:23→20:55)
[2020-12-28 12:00] VITALS: BP 90/48
[2020-12-28 16:00] VITALS: BP 97/59
[2020-12-28 20:00] VITALS: BP 101/56
[2020-12-28] MEDS: LACTULOSE 20G/30ML UDC PO SCH (20:52)
[2020-12-29] VITALS: BP 93/59
[2020-12-29 04:00] VITALS: BP 97/54
[2020-12-29] MEDS: OMEPRAZOLE 20MG CAPSULE EXTENDED RELEASE PO SCH (06:28)
[2020-12-29 08:00] VITALS: BP 100/55
[2020-12-29] MEDS: SODIUM CHLORIDE 0.9% 1,000 ML IV SCH (09:39)
[2020-12-29] MEDS: QUETIAPINE FUMARATE 50MG TABLET PO SCH ×2 (09:40→22:51)
[2020-12-29] MEDS: MIDODRINE HCL 2.5MG TABLET PO SCH ×3 (09:40→17:29)
[2020-12-29] MEDS: ZINC SULFATE 220 MG ( 50 ) CAPSULE PO SCH (09:40)
[2020-12-29] MEDS: DOCUSATE SODIUM 100MG CAPSULE PO SCH ×2 (09:40→17:29)
[2020-12-29] MEDS: ASCORBIC ACID 500 MG TABLET PO SCH (09:41)
[2020-12-29] MEDS: POLYETHYLENE GLYCOL 3350 (17GM) 1 DOSE PACK PO SCH (09:48)
[2020-12-29 12:00] VITALS: BP 100/60
[2020-12-29 16:00] VITALS: BP 101/50
[2020-12-29 20:00] VITALS: BP 91/50
[2020-12-29] MEDS: LACTULOSE 20G/30ML UDC PO SCH (22:51)
[2020-12-30] VITALS: BP 100/53
[2020-12-30 04:00] VITALS: BP 86/53
[2020-12-30] MEDS: OMEPRAZOLE 20MG CAPSULE EXTENDED RELEASE PO SCH (06:30)
[2020-12-30 10:27] VITALS: BP 92/50
[2020-12-30 12:00] VITALS: BP 96/57
[2020-12-30] MEDS: POLYETHYLENE GLYCOL 3350 (17GM) 1 DOSE PACK PO SCH (12:04)
[2020-12-30] MEDS: DOCUSATE SODIUM 100MG CAPSULE PO SCH ×2 (12:04→18:54)
[2020-12-30] MEDS: ZINC SULFATE 220 MG ( 50 ) CAPSULE PO SCH (12:04)
[2020-12-30] MEDS: MIDODRINE HCL 2.5MG TABLET PO SCH ×3 (12:08→18:54)
[2020-12-30] MEDS: ASCORBIC ACID 500 MG TABLET PO SCH (12:12)
[2020-12-30] MEDS: QUETIAPINE FUMARATE 50MG TABLET PO SCH ×2 (12:12→21:47)
[2020-12-30 16:00] VITALS: BP 92/54
[2020-12-30 20:00] VITALS: BP 107/61
[2020-12-30] MEDS: LACTULOSE 20G/30ML UDC PO SCH (21:47)
[2020-12-31] VITALS: BP 98/55
[2020-12-31 04:00] VITALS: BP 90/43
[2020-12-31] MEDS: OMEPRAZOLE 20MG CAPSULE EXTENDED RELEASE PO SCH (06:40)
[2020-12-31 08:00] VITALS: BP 111/65
[2020-12-31] MEDS: MIDODRINE HCL 2.5MG TABLET PO SCH ×3 (09:00→19:23)
[2020-12-31 12:00] VITALS: BP 91/49
[2020-12-31] MEDS: ZINC SULFATE 220 MG ( 50 ) CAPSULE PO SCH (13:23)
[2020-12-31] MEDS: DOCUSATE SODIUM 100MG CAPSULE PO SCH ×2 (13:23→19:22)
[2020-12-31] MEDS: POLYETHYLENE GLYCOL 3350 (17GM) 1 DOSE PACK PO SCH (13:23)
[2020-12-31] MEDS: QUETIAPINE FUMARATE 50MG TABLET PO SCH ×2 (13:26→20:06)
[2020-12-31] MEDS: ASCORBIC ACID 500 MG TABLET PO SCH (13:26)
[2020-12-31 16:00] VITALS: BP 97/54
[2020-12-31] MEDS: LACTULOSE 20G/30ML UDC PO SCH (20:06)
[2020-12-31 22:58] VITALS: BP 94/50
[2021-01-01] VITALS: BP 86/45
[2021-01-01 04:00] VITALS: BP 107/47
[2021-01-01] MEDS: OMEPRAZOLE 20MG CAPSULE EXTENDED RELEASE PO SCH (06:23)
[2021-01-01 08:00] VITALS: BP 94/42
[2021-01-01] MEDS: POLYETHYLENE GLYCOL 3350 (17GM) 1 DOSE PACK PO SCH (09:01)
[2021-01-01] MEDS: DOCUSATE SODIUM 100MG CAPSULE PO SCH ×2 (09:01→17:30)
[2021-01-01] MEDS: MIDODRINE HCL 2.5MG TABLET PO SCH ×3 (09:02→17:30)
[2021-01-01] MEDS: ASCORBIC ACID 500 MG TABLET PO SCH (09:02)
[2021-01-01] MEDS: ZINC SULFATE 220 MG ( 50 ) CAPSULE PO SCH (09:02)
[2021-01-01] MEDS: QUETIAPINE FUMARATE 50MG TABLET PO SCH ×2 (09:02→20:13)
[2021-01-01] MEDS: SODIUM CHLORIDE 0.9% 1,000 ML IV SCH (17:37)
[2021-01-01 20:00] VITALS: BP 98/50
[2021-01-01] MEDS: LACTULOSE 20G/30ML UDC PO SCH (20:13)
[2021-01-02] VITALS: BP 94/57
[2021-01-02 04:00] VITALS: BP 96/51
[2021-01-02] MEDS: OMEPRAZOLE 20MG CAPSULE EXTENDED RELEASE PO SCH (06:31)
[2021-01-02 08:00] VITALS: BP 90/45
[2021-01-02] MEDS: QUETIAPINE FUMARATE 50MG TABLET PO SCH ×2 (08:34→20:29)
[2021-01-02] MEDS: DOCUSATE SODIUM 100MG CAPSULE PO SCH ×2 (08:34→17:18)
[2021-01-02] MEDS: ZINC SULFATE 220 MG ( 50 ) CAPSULE PO SCH (08:34)
[2021-01-02] MEDS: MIDODRINE HCL 2.5MG TABLET PO SCH ×3 (08:34→17:19)
[2021-01-02] MEDS: ASCORBIC ACID 500 MG TABLET PO SCH (08:34)
[2021-01-02] MEDS: POLYETHYLENE GLYCOL 3350 (17GM) 1 DOSE PACK PO SCH (08:35)
[2021-01-02 12:00] VITALS: BP 92/47
[2021-01-02 16:00] VITALS: BP 96/46
[2021-01-02] MEDS: SODIUM CHLORIDE 0.9% 1,000 ML IV SCH (19:58)
[2021-01-02 20:00] VITALS: BP 97/52
[2021-01-02] MEDS: LACTULOSE 20G/30ML UDC PO SCH (20:29)
[2021-01-03] VITALS (7 sets, daily range): BP systolic 88–92; BP diastolic 44–56
[2021-01-03] MEDS: OMEPRAZOLE 20MG CAPSULE EXTENDED RELEASE PO SCH (06:25)
[2021-01-03] MEDS: DOCUSATE SODIUM 100MG CAPSULE PO SCH ×2 (09:09→17:38)
[2021-01-03] MEDS: ZINC SULFATE 220 MG ( 50 ) CAPSULE PO SCH (09:09)
[2021-01-03] MEDS: POLYETHYLENE GLYCOL 3350 (17GM) 1 DOSE PACK PO SCH (09:09)
[2021-01-03] MEDS: QUETIAPINE FUMARATE 50MG TABLET PO SCH ×2 (09:09→20:50)
[2021-01-03] MEDS: MIDODRINE HCL 2.5MG TABLET PO SCH ×3 (09:10→17:38)
[2021-01-03] MEDS: ASCORBIC ACID 500 MG TABLET PO SCH (09:10)
[2021-01-03] MEDS: SODIUM CHLORIDE 0.9% 1,000 ML IV SCH ×2 (09:25→22:06)
[2021-01-03] MEDS: LACTULOSE 20G/30ML UDC PO SCH (20:50)
[2021-01-04] VITALS: BP 95/53
[2021-01-04 04:00] VITALS: BP 91/53
[2021-01-04] MEDS: OMEPRAZOLE 20MG CAPSULE EXTENDED RELEASE PO SCH (06:46)
[2021-01-04 08:00] VITALS: BP 88/48
[2021-01-04] MEDS: DOCUSATE SODIUM 100MG CAPSULE PO SCH ×2 (08:48→16:54)
[2021-01-04] MEDS: QUETIAPINE FUMARATE 50MG TABLET PO SCH ×2 (08:48→20:53)
[2021-01-04] MEDS: ZINC SULFATE 220 MG ( 50 ) CAPSULE PO SCH (08:48)
[2021-01-04] MEDS: ASCORBIC ACID 500 MG TABLET PO SCH (08:48)
[2021-01-04] MEDS: MIDODRINE HCL 2.5MG TABLET PO SCH ×3 (08:54→16:54)
[2021-01-04] MEDS: POLYETHYLENE GLYCOL 3350 (17GM) 1 DOSE PACK PO SCH (08:55)
[2021-01-04 12:00] VITALS: BP 94/52
[2021-01-04] MEDS: SODIUM CHLORIDE 0.9% 1,000 ML IV SCH (12:31)
[2021-01-04 16:00] VITALS: BP 97/51
[2021-01-04] MEDS ORDERED: ONDANSETRON HCL 4MG/2ML INJ IV PRN (16:45)
[2021-01-04 19:44] LABS: BASOPHILS % 0.1 % (0.0-2.0); EOSINOPHILS % 3.3 % (0.0-5.0); HEMATOCRIT. 30.8 % (42.0-52.0); HEMOGLOBIN. 10.2 g/dL (14.0-18.0); MEAN CORPUSCULAR HEMOGLOBIN 28.2 pg (28.0-32.0); MEAN CORPUSCULAR VOLUME 85.3 fL (80.0-94.0); MEAN PLATELET VOLUME 7.8 fl (7.4-10.4); MONOCYTES % 10.3 % (2.0-8.0); NEUTROPHILS % 41.3 % (40.0-76.0); PLATELET 296 x1000/uL (130-400); RED BLOOD CELL COUNT 3.62 mill/uL (4.7-6.1); RED CELL DISTRIBUTION WIDTH 17.5 % (11.6-14.6)
[2021-01-04 19:59] LABS: CHLORIDE 106 mEq/L (98-107)
[2021-01-04 20:00] VITALS: BP 94/49
[2021-01-04] MEDS: LACTULOSE 20G/30ML UDC PO SCH (20:53)
[2021-01-05] VITALS: BP 90/50
[2021-01-05] MEDS: SODIUM CHLORIDE 0.9% 1,000 ML IV SCH ×2 (01:20→14:40)
[2021-01-05 04:00] VITALS: BP 90/49
[2021-01-05] MEDS: OMEPRAZOLE 20MG CAPSULE EXTENDED RELEASE PO SCH (07:04)
[2021-01-05] MEDS: DOCUSATE SODIUM 100MG CAPSULE PO SCH ×2 (08:49→17:45)
[2021-01-05] MEDS: ASCORBIC ACID 500 MG TABLET PO SCH (08:49)
[2021-01-05] MEDS: POLYETHYLENE GLYCOL 3350 (17GM) 1 DOSE PACK PO SCH (08:50)
[2021-01-05] MEDS: ZINC SULFATE 220 MG ( 50 ) CAPSULE PO SCH (08:50)
[2021-01-05] MEDS: QUETIAPINE FUMARATE 50MG TABLET PO SCH ×2 (08:50→20:39)
[2021-01-05] MEDS: MIDODRINE HCL 2.5MG TABLET PO SCH ×2 (08:51→12:22)
[2021-01-05 12:00] VITALS: BP 91/44
[2021-01-05 16:00] VITALS: BP 81/46
[2021-01-05 20:00] VITALS: BP 91/41
[2021-01-05 20:15] VITALS: BP 94/51
[2021-01-05] MEDS: LACTULOSE 20G/30ML UDC PO SCH (20:39)
[2021-01-06] VITALS: BP 98/61
[2021-01-06] MEDS: SODIUM CHLORIDE 0.9% 1,000 ML IV SCH ×3 (02:49→23:24)
[2021-01-06 04:00] VITALS: BP 92/58
[2021-01-06] MEDS: OMEPRAZOLE 20MG CAPSULE EXTENDED RELEASE PO SCH (06:59)
[2021-01-06 08:00] VITALS: BP 97/60
[2021-01-06] MEDS: ZINC SULFATE 220 MG ( 50 ) CAPSULE PO SCH (08:55)
[2021-01-06] MEDS: ASCORBIC ACID 500 MG TABLET PO SCH (08:55)
[2021-01-06] MEDS: POLYETHYLENE GLYCOL 3350 (17GM) 1 DOSE PACK PO SCH (08:56)
[2021-01-06] MEDS: DOCUSATE SODIUM 100MG CAPSULE PO SCH ×2 (08:56→17:04)
[2021-01-06] MEDS: MIDODRINE HCL 5MG TABLET PO SCH ×3 (08:56→17:04)
[2021-01-06] MEDS: QUETIAPINE FUMARATE 50MG TABLET PO SCH ×2 (08:56→20:45)
[2021-01-06 12:00] VITALS: BP 94/51
[2021-01-06 16:00] VITALS: BP 97/50
[2021-01-06 20:00] VITALS: BP 90/46
[2021-01-06] MEDS: LACTULOSE 20G/30ML UDC PO SCH (20:45)
[2021-01-07] VITALS: BP 101/53
[2021-01-07 04:00] VITALS: BP 93/50
[2021-01-07] MEDS: OMEPRAZOLE 20MG CAPSULE EXTENDED RELEASE PO SCH (06:21)
[2021-01-07 08:00] VITALS: BP 91/53
[2021-01-07] MEDS: SODIUM CHLORIDE 0.9% 1,000 ML IV SCH ×2 (08:49→18:49)
[2021-01-07] MEDS: DOCUSATE SODIUM 100MG CAPSULE PO SCH ×2 (10:38→19:04)
[2021-01-07] MEDS: ZINC SULFATE 220 MG ( 50 ) CAPSULE PO SCH (10:39)
[2021-01-07] MEDS: MIDODRINE HCL 5MG TABLET PO SCH ×3 (10:39→19:04)
[2021-01-07] MEDS: POLYETHYLENE GLYCOL 3350 (17GM) 1 DOSE PACK PO SCH (10:39)
[2021-01-07] MEDS: QUETIAPINE FUMARATE 50MG TABLET PO SCH ×2 (10:40→20:31)
[2021-01-07] MEDS: ASCORBIC ACID 500 MG TABLET PO SCH (10:40)
[2021-01-07 12:00] VITALS: BP 86/55
[2021-01-07 16:00] VITALS: BP 99/51
[2021-01-07 20:00] VITALS: BP 96/48
[2021-01-07] MEDS: LACTULOSE 20G/30ML UDC PO SCH (20:35)
[2021-01-08] VITALS: BP 94/53
[2021-01-08 04:00] VITALS: BP 95/48
[2021-01-08] MEDS: SODIUM CHLORIDE 0.9% 1,000 ML IV SCH ×2 (04:49→18:45)
[2021-01-08] MEDS: OMEPRAZOLE 20MG CAPSULE EXTENDED RELEASE PO SCH (05:50)
[2021-01-08 08:00] VITALS: BP 99/54
[2021-01-08] MEDS: QUETIAPINE FUMARATE 50MG TABLET PO SCH ×2 (10:44→21:22)
[2021-01-08] MEDS: DOCUSATE SODIUM 100MG CAPSULE PO SCH ×2 (10:45→18:48)
[2021-01-08] MEDS: ASCORBIC ACID 500 MG TABLET PO SCH (10:45)
[2021-01-08] MEDS: MIDODRINE HCL 5MG TABLET PO SCH ×3 (10:45→18:48)
[2021-01-08] MEDS: ZINC SULFATE 220 MG ( 50 ) CAPSULE PO SCH (10:46)
[2021-01-08] MEDS: POLYETHYLENE GLYCOL 3350 (17GM) 1 DOSE PACK PO SCH (10:46)
[2021-01-08 12:00] VITALS: BP 91/55
[2021-01-08 16:00] VITALS: BP 102/52
[2021-01-08 20:00] VITALS: BP 92/50
[2021-01-08] MEDS: LACTULOSE 20G/30ML UDC PO SCH ×2 (21:00→21:22)
[2021-01-09] VITALS: BP 98/56
[2021-01-09 04:00] VITALS: BP 92/54
[2021-01-09] MEDS: OMEPRAZOLE 20MG CAPSULE EXTENDED RELEASE PO SCH (06:48)
[2021-01-09] MEDS: SODIUM CHLORIDE 0.9% 1,000 ML IV SCH ×2 (06:48→10:26)
[2021-01-09 08:00] VITALS: BP 102/59
[2021-01-09] MEDS: DOCUSATE SODIUM 100MG CAPSULE PO SCH ×2 (09:00→17:00)
[2021-01-09] MEDS: POLYETHYLENE GLYCOL 3350 (17GM) 1 DOSE PACK PO SCH (09:00)
[2021-01-09] MEDS: ASCORBIC ACID 500 MG TABLET PO SCH (10:22)
[2021-01-09] MEDS: MIDODRINE HCL 5MG TABLET PO SCH ×3 (10:23→18:14)
[2021-01-09] MEDS: QUETIAPINE FUMARATE 50MG TABLET PO SCH ×2 (10:24→21:27)
[2021-01-09] MEDS: ZINC SULFATE 220 MG ( 50 ) CAPSULE PO SCH (10:24)
[2021-01-09 12:00] VITALS: BP 89/54
[2021-01-09] MEDS: LACTULOSE 20G/30ML UDC PO SCH (21:00)
[2021-01-09 21:43] VITALS: BP 100/39
[2021-01-10 01:25] VITALS: BP 84/46
[2021-01-10 05:31] VITALS: BP 93/50
[2021-01-10] MEDS: OMEPRAZOLE 20MG CAPSULE EXTENDED RELEASE PO SCH (06:43)
[2021-01-10 08:00] VITALS: BP 94/52
[2021-01-10] MEDS: POLYETHYLENE GLYCOL 3350 (17GM) 1 DOSE PACK PO SCH (09:00)
[2021-01-10] MEDS: ZINC SULFATE 220 MG ( 50 ) CAPSULE PO SCH (09:08)
[2021-01-10] MEDS: ASCORBIC ACID 500 MG TABLET PO SCH (09:08)
[2021-01-10] MEDS: DOCUSATE SODIUM 100MG CAPSULE PO SCH ×2 (09:09→16:58)
[2021-01-10] MEDS: MIDODRINE HCL 5MG TABLET PO SCH ×3 (09:09→16:58)
[2021-01-10] MEDS: QUETIAPINE FUMARATE 50MG TABLET PO SCH ×2 (09:09→23:13)
[2021-01-10 12:00] VITALS: BP 84/46
[2021-01-10 16:00] VITALS: BP 88/50
[2021-01-10 20:00] VITALS: BP 103/61
[2021-01-10] MEDS: LACTULOSE 20G/30ML UDC PO SCH (23:13)
[2021-01-11] VITALS: BP 93/50
[2021-01-11] MEDS: SODIUM CHLORIDE 0.9% 1,000 ML IV SCH ×2 (11:13→22:24)
[2021-01-11] MEDS: DOCUSATE SODIUM 100MG CAPSULE PO SCH ×2 (11:17→18:52)
[2021-01-11] MEDS: OMEPRAZOLE 20MG CAPSULE EXTENDED RELEASE PO SCH (11:17)
[2021-01-11] MEDS: POLYETHYLENE GLYCOL 3350 (17GM) 1 DOSE PACK PO SCH (11:18)
[2021-01-11] MEDS: MIDODRINE HCL 5MG TABLET PO SCH ×3 (11:19→18:52)
[2021-01-11] MEDS: QUETIAPINE FUMARATE 50MG TABLET PO SCH ×2 (11:19→22:24)
[2021-01-11] MEDS: ZINC SULFATE 220 MG ( 50 ) CAPSULE PO SCH (11:19)
[2021-01-11] MEDS: ASCORBIC ACID 500 MG TABLET PO SCH (11:19)
[2021-01-11 18:30] VITALS: BP 95/46
[2021-01-11 20:00] VITALS: BP 93/44
[2021-01-11] MEDS: LACTULOSE 20G/30ML UDC PO SCH (22:24)
[2021-01-12] VITALS: BP 90/50
[2021-01-12 04:00] VITALS: BP 97/32
[2021-01-12] MEDS: OMEPRAZOLE 20MG CAPSULE EXTENDED RELEASE PO SCH (06:22)
[2021-01-12 08:00] VITALS: BP 97/55
[2021-01-12] MEDS: SODIUM CHLORIDE 0.9% 1,000 ML IV SCH ×2 (08:49→18:00)
[2021-01-12] MEDS: ZINC SULFATE 220 MG ( 50 ) CAPSULE PO SCH (09:59)
[2021-01-12] MEDS: MIDODRINE HCL 5MG TABLET PO SCH ×3 (09:59→16:14)
[2021-01-12] MEDS: ASCORBIC ACID 500 MG TABLET PO SCH (09:59)
[2021-01-12] MEDS: DOCUSATE SODIUM 100MG CAPSULE PO SCH ×2 (09:59→16:14)
[2021-01-12] MEDS: QUETIAPINE FUMARATE 50MG TABLET PO SCH ×2 (10:00→20:25)
[2021-01-12] MEDS: POLYETHYLENE GLYCOL 3350 (17GM) 1 DOSE PACK PO SCH (10:00)
[2021-01-12 12:00] VITALS: BP 90/50
[2021-01-12 16:00] VITALS: BP 90/44
[2021-01-12 20:00] VITALS: BP 114/63
[2021-01-12] MEDS: LACTULOSE 20G/30ML UDC PO SCH (20:25)
[2021-01-13] VITALS: BP 95/58
[2021-01-13 04:00] VITALS: BP 82/47
[2021-01-13] MEDS: SODIUM CHLORIDE 0.9% 1,000 ML IV SCH ×3 (04:49→23:49)
[2021-01-13] MEDS: OMEPRAZOLE 20MG CAPSULE EXTENDED RELEASE PO SCH (06:05)
[2021-01-13 08:00] VITALS: BP 92/54
[2021-01-13] MEDS: DOCUSATE SODIUM 100MG CAPSULE PO SCH ×2 (09:38→17:27)
[2021-01-13] MEDS: ASCORBIC ACID 500 MG TABLET PO SCH (09:38)
[2021-01-13] MEDS: ZINC SULFATE 220 MG ( 50 ) CAPSULE PO SCH (09:38)
[2021-01-13] MEDS: QUETIAPINE FUMARATE 50MG TABLET PO SCH ×2 (09:39→20:58)
[2021-01-13] MEDS: POLYETHYLENE GLYCOL 3350 (17GM) 1 DOSE PACK PO SCH (09:39)
[2021-01-13] MEDS: MIDODRINE HCL 5MG TABLET PO SCH ×3 (09:39→17:27)
[2021-01-13 12:00] VITALS: BP 90/50
[2021-01-13 16:00] VITALS: BP 98/55
[2021-01-13 20:00] VITALS: BP 98/55
[2021-01-13] MEDS: LACTULOSE 20G/30ML UDC PO SCH (20:57)
[2021-01-14] VITALS: BP 113/67
[2021-01-14 04:00] VITALS: BP 100/61
[2021-01-14] MEDS: OMEPRAZOLE 20MG CAPSULE EXTENDED RELEASE PO SCH (06:25)
[2021-01-14 08:00] VITALS: BP 94/55
[2021-01-14] MEDS: POLYETHYLENE GLYCOL 3350 (17GM) 1 DOSE PACK PO SCH (09:00)
[2021-01-14] MEDS: ZINC SULFATE 220 MG ( 50 ) CAPSULE PO SCH (09:28)
[2021-01-14] MEDS: ASCORBIC ACID 500 MG TABLET PO SCH (09:28)
[2021-01-14] MEDS: DOCUSATE SODIUM 100MG CAPSULE PO SCH ×2 (09:28→18:15)
[2021-01-14] MEDS: QUETIAPINE FUMARATE 50MG TABLET PO SCH ×2 (09:29→21:42)
[2021-01-14] MEDS: MIDODRINE HCL 5MG TABLET PO SCH ×3 (09:30→18:16)
[2021-01-14] MEDS: SODIUM CHLORIDE 0.9% 1,000 ML IV SCH ×2 (10:49→20:46)
[2021-01-14 16:00] VITALS: BP 107/58
[2021-01-14 20:00] VITALS: BP 100/61
[2021-01-14] MEDS ORDERED: QUET25TA MT (21:36)
[2021-01-14] MEDS: LACTULOSE 20G/30ML UDC PO SCH (21:41)
[2021-01-15] VITALS: BP 108/55
[2021-01-15 04:00] VITALS: BP 110/59
[2021-01-15] MEDS: OMEPRAZOLE 20MG CAPSULE EXTENDED RELEASE PO SCH (06:36)
[2021-01-15 08:00] VITALS: BP 90/47
[2021-01-15] MEDS: POLYETHYLENE GLYCOL 3350 (17GM) 1 DOSE PACK PO SCH (09:00)
[2021-01-15] MEDS: QUETIAPINE FUMARATE 25MG TABLET PO SCH ×2 (09:56→21:42)
[2021-01-15] MEDS: ZINC SULFATE 220 MG ( 50 ) CAPSULE PO SCH (09:56)
[2021-01-15] MEDS: ASCORBIC ACID 500 MG TABLET PO SCH (09:56)
[2021-01-15] MEDS: DOCUSATE SODIUM 100MG CAPSULE PO SCH ×2 (09:56→18:28)
[2021-01-15] MEDS: MIDODRINE HCL 5MG TABLET PO SCH ×3 (09:57→18:02)
[2021-01-15 12:00] VITALS: BP 90/43
[2021-01-15 16:00] VITALS: BP 107/54
[2021-01-15 20:00] VITALS: BP 91/55
[2021-01-15] MEDS: LACTULOSE 20G/30ML UDC PO SCH (21:42)
[2021-01-16] VITALS: BP 97/58
[2021-01-16 04:00] VITALS: BP 101/63
[2021-01-16] MEDS: OMEPRAZOLE 20MG CAPSULE EXTENDED RELEASE PO SCH (06:34)
[2021-01-16 08:00] VITALS: BP 80/42
[2021-01-16] MEDS: POLYETHYLENE GLYCOL 3350 (17GM) 1 DOSE PACK PO SCH (09:00)
[2021-01-16] MEDS: DOCUSATE SODIUM 100MG CAPSULE PO SCH ×2 (09:00→16:59)
[2021-01-16] MEDS: MIDODRINE HCL 5MG TABLET PO SCH ×3 (10:05→17:33)
[2021-01-16] MEDS: ASCORBIC ACID 500 MG TABLET PO SCH (10:06)
[2021-01-16] MEDS: ZINC SULFATE 220 MG ( 50 ) CAPSULE PO SCH (10:06)
[2021-01-16] MEDS: QUETIAPINE FUMARATE 25MG TABLET PO SCH ×2 (10:06→21:24)
[2021-01-16 12:00] VITALS: BP 91/48
[2021-01-16 16:00] VITALS: BP 103/53
[2021-01-16 20:00] VITALS: BP 92/44
[2021-01-16] MEDS: LACTULOSE 20G/30ML UDC PO SCH (21:24)
[2021-01-17 00:30] VITALS: BP 95/59
[2021-01-17 04:00] VITALS: BP 90/45
[2021-01-17 08:00] VITALS: BP 92/52
[2021-01-17] MEDS: MIDODRINE HCL 5MG TABLET PO SCH ×3 (08:34→17:35)
[2021-01-17] MEDS: OMEPRAZOLE 20MG CAPSULE EXTENDED RELEASE PO SCH (08:34)
[2021-01-17] MEDS: POLYETHYLENE GLYCOL 3350 (17GM) 1 DOSE PACK PO SCH (08:35)
[2021-01-17] MEDS: QUETIAPINE FUMARATE 25MG TABLET PO SCH ×2 (08:35→20:42)
[2021-01-17 12:00] VITALS: BP 94/54
[2021-01-17 16:00] VITALS: BP 102/50
[2021-01-17 20:00] VITALS: BP 101/54
[2021-01-18] VITALS: BP 96/52
[2021-01-18 04:00] VITALS: BP 97/50
[2021-01-18] MEDS: OMEPRAZOLE 20MG CAPSULE EXTENDED RELEASE PO SCH (06:22)
[2021-01-18 08:00] VITALS: BP 92/53
[2021-01-18] MEDS: QUETIAPINE FUMARATE 25MG TABLET PO SCH ×2 (09:15→21:46)
[2021-01-18] MEDS: MIDODRINE HCL 5MG TABLET PO SCH ×3 (09:15→17:01)
[2021-01-18 12:00] VITALS: BP 92/53
[2021-01-18 16:00] VITALS: BP 96/53
[2021-01-18 20:00] VITALS: BP 103/60
[2021-01-19] VITALS: BP 92/51
[2021-01-19 04:00] VITALS: BP 92/42
[2021-01-19] MEDS: OMEPRAZOLE 20MG CAPSULE EXTENDED RELEASE PO SCH (06:32)
[2021-01-19 08:00] VITALS: BP 89/51
[2021-01-19] MEDS: QUETIAPINE FUMARATE 25MG TABLET PO SCH ×2 (09:16→20:35)
[2021-01-19] MEDS: MIDODRINE HCL 5MG TABLET PO SCH ×3 (09:16→17:27)
[2021-01-19 12:00] VITALS: BP 99/58
[2021-01-19 16:00] VITALS: BP 81/40
[2021-01-19 20:00] VITALS: BP 102/57
[2021-01-20] VITALS: BP 104/46
[2021-01-20 04:00] VITALS: BP 91/50
[2021-01-20] MEDS: OMEPRAZOLE 20MG CAPSULE EXTENDED RELEASE PO SCH (06:20)
[2021-01-20 08:00] VITALS: BP 93/55
[2021-01-20] MEDS: QUETIAPINE FUMARATE 25MG TABLET PO SCH ×2 (09:25→20:14)
[2021-01-20] MEDS: MIDODRINE HCL 5MG TABLET PO SCH ×3 (09:25→16:56)
[2021-01-20] MEDS ORDERED: POLYETHYLENE GLYCOL 3350 (17GM) 1 DOSE PACK PO PRN (11:15)
[2021-01-20] MEDS ORDERED: SENNOSIDES/DOCUSATE SOD 8.6/50MG TABLET PO PRN (11:15)
[2021-01-20 12:00] VITALS: BP 96/54
[2021-01-20 16:00] VITALS: BP 101/55
[2021-01-20 20:46] VITALS: BP 90/44
[2021-01-21 00:09] VITALS: BP 98/54
[2021-01-21 05:14] VITALS: BP 92/44
[2021-01-21] MEDS: OMEPRAZOLE 20MG CAPSULE EXTENDED RELEASE PO SCH (07:00)
[2021-01-21 08:00] VITALS: BP 91/53
[2021-01-21] MEDS: MIDODRINE HCL 5MG TABLET PO SCH ×2 (10:19→13:52)
[2021-01-21] MEDS: QUETIAPINE FUMARATE 25MG TABLET PO SCH ×2 (10:19→20:45)
[2021-01-21 12:00] VITALS: BP 93/50
[2021-01-21 16:00] VITALS: BP 105/56
[2021-01-21 20:00] VITALS: BP 95/52
[2021-01-22] VITALS (7 sets, daily range): BP systolic 81–99; BP diastolic 41–59
[2021-01-22] MEDS: OMEPRAZOLE 20MG CAPSULE EXTENDED RELEASE PO SCH (06:48)
[2021-01-22] MEDS: QUETIAPINE FUMARATE 25MG TABLET PO SCH (09:04)
== END 2021-01-22 17:55 | DRG 4 ==
LOC: ER 07:58 → MICUSO 13:09 → EDBD 13:09 → ENRESERV 10-18 07:36 → MICUNO 10-19 15:23 → CVICU 10-22 16:00 → 5EST 11-06 19:38 → 6EST 12-09 01:44
PROVIDERS: ADMIT Internal Medicine; ATTEND Internal Medicine
PROC: 06HY33Z Insertion of Infusion Device into Lower Vein, Percutaneous Approach (ICD-10-PCS; 2020-10-17)
PROC: B54BZZA Ultrasonography of Right Lower Extremity Veins, Guidance (ICD-10-PCS; 2020-10-17)
PROC: 30233M1 Transfusion of Nonautologous Plasma Cryoprecipitate into Peripheral Vein, Percutaneous Approach (ICD-10-PCS; 2020-10-17)
PROC: 02HV33Z Insertion of Infusion Device into Superior Vena Cava, Percutaneous Approach (ICD-10-PCS; 2020-10-31)
PROC: B548ZZA Ultrasonography of Superior Vena Cava, Guidance (ICD-10-PCS; 2020-10-31)
PROC: 30233N1 Transfusion of Nonautologous Red Blood Cells into Peripheral Vein, Percutaneous Approach (ICD-10-PCS; 2020-11-03)
PROC: 0JB70ZZ Excision of Back Subcutaneous Tissue and Fascia, Open Approach (ICD-10-PCS; 2020-11-06)
PROC: 0B110F4 Bypass Trachea to Cutaneous with Tracheostomy Device, Open Approach (ICD-10-PCS; 2020-11-07)
PROC: 0GBJ0ZZ Excision of Thyroid Gland Isthmus, Open Approach (ICD-10-PCS; 2020-11-07)
PROC: 0DH68UZ Insertion of Feeding Device into Stomach, Via Natural or Artificial Opening Endoscopic (ICD-10-PCS; 2020-11-09)
PROC: 5A1955Z Respiratory Ventilation, Greater than 96 Consecutive Hours (ICD-10-PCS; principal; 2020-11-16)
PROC: 0BH17EZ Insertion of Endotracheal Airway into Trachea, Via Natural or Artificial Opening (ICD-10-PCS; 2020-11-16)
PROC: 05HM33Z Insertion of Infusion Device into Right Internal Jugular Vein, Percutaneous Approach (ICD-10-PCS; 2020-12-11)
PROC: B543ZZA Ultrasonography of Right Jugular Veins, Guidance (ICD-10-PCS; 2020-12-11)
DX: A41.9 Sepsis, unspecified organism (principal); E43 Unspecified severe protein-calorie malnutrition; E83.42 Hypomagnesemia; E83.51 Hypocalcemia; E86.1 Hypovolemia; G93.41 Metabolic encephalopathy; I46.9 Cardiac arrest, cause unspecified; J69.0 Pneumonitis due to inhalation of food and vomit; K72.00 Acute and subacute hepatic failure without coma; R65.21 Severe sepsis with septic shock; J90 Pleural effusion, not elsewhere classified; E87.1 Hypo-osmolality and hyponatremia; J96.01 Acute respiratory failure with hypoxia; E87.6 Hypokalemia; E87.8 Other disorders of electrolyte and fluid balance, not elsewhere classified; D61.818 Other pancytopenia; D50.9 Iron deficiency anemia, unspecified; L89.153 Pressure ulcer of sacral region, stage 3; L89.156 Pressure-induced deep tissue damage of sacral region; K29.70 Gastritis, unspecified, without bleeding; D65 Disseminated intravascular coagulation [defibrination syndrome]; I10 Essential (primary) hypertension; K59.00 Constipation, unspecified; R13.10 Dysphagia, unspecified; Z20.822 Contact with and (suspected) exposure to COVID-19; Z66 Do not resuscitate; I82.621 Acute embolism and thrombosis of deep veins of right upper extremity; B96.1 Klebsiella pneumoniae [K. pneumoniae] as the cause of diseases classified elsewhere; Z68.1 Body mass index [BMI] 19.9 or less, adult; Z59.0 Homelessness; Z99.11 Dependence on respirator [ventilator] status; Z43.1 Encounter for attention to gastrostomy; J15.0 Pneumonia due to Klebsiella pneumoniae
CPT/HCPCS: 36415; 36600; 71045; 74018; 76700; 76937; 80048; 80053; 80076; 80202; 80305; 80307; 80320; 80329; 81003; 82040; 82140; 82247; 82248; 82270; 82375; 82550; 82607; 82728; 82746; 82805; 82962; 83540; 83550; 83605; 83735; 83880; 84075; 84100; 84132; 84134; 84145; 84443; 84450; 84460; 85014; 85018; 85025; 85044; 86705; 86709; 86803; 86850; 86900; 86920; 86927; 87015; 87045; 87070; 87077; 87186; 87340; 87426; 87427; 87449; 87635; 89055; 92610; 93005; 93306; 93970; 94002; 94003; 94640; 97110; 97116; 97162; 97166; 97530; 97535; 99291; A6261; C1725; C1893; C9113; J0295; J0330; J0461; J0692; J0696; J2060; J2250; J2270; J2370; J2405; J2543; J2765; J3010; J3370; J3475; J3480; J3490; J7030; J7040; J7042; J7050; J7060; J7070; J7608; P9016; P9017; G0480

== ENCOUNTER 2021-03-07 15:38 | Emergency (ER) | payer OTHER ==
[~2021-03-07] VITALS: Ht 165.1 cm; Wt 50.0 kg
[~2021-03-07 15:38] MED LIST: QUET25TA MT
[2021-03-07] MEDS ORDERED: TOPUD PO (15:54)
[2021-03-07] MEDS ORDERED: ACETAMINOPHEN 325MG TABLET PO ONE (16:00)
[2021-03-07] MEDS ORDERED: KETOROLAC 60MG/2ML VIAL IM ONE (16:00)
[2021-03-07 16:11] VITALS: BP 120/78
== END 2021-03-07 16:11 | disposition home or self-care (01) ==
LOC: ER 15:38
DX: M79.662 Pain in left lower leg (principal); M79.661 Pain in right lower leg; M79.602 Pain in left arm; M79.601 Pain in right arm
CPT/HCPCS: 96372; 99283; J1885